=== PATIENT | male | born 1980 | race Caucasian/White ===

== ENCOUNTER 2019-12-24 11:51 | Inpatient (IN) | payer BC, OTHER ==
[~2019-12-24 11:51] MED LIST: Iopamidol-370 76% 500 ML 1 ML ONE
[2019-12-24] MEDS ORDERED: Lorazepam 2 MG/ML VIAL ONE ×2 (12:05→14:02)
[2019-12-24] MEDS ORDERED: Thiamine HCl 200 MG/2 ML VIAL SLOW IVP SCH (12:15)
[2019-12-24 12:32] LABS: #Lymphocytes 1.5 thou/uL (1.20-3.40); #Neutrophils 8.8 thou/uL (1.40-6.50); %Basophils 0.3 % (0.0-1.0); %Eosinophils 0.4 % (0.0-10.0); %Lymphocytes 13.1 % (21.0-51.0); %Monocytes 8.7 % (0.0-10.0); %Neutrophils 77.5 % (42.0-75.0); Hemoglobin 14.6 g/dL (14.0-18.0); Mean Corpuscular HGB CONC 32.9 g/dL (32.0-36.0); Mean Corpuscular Hemoglobin 32.9 pg (27.0-31.0); Mean Platelet Volume 8.5 fL (7.4-10.4); Platelet Count 200 thou/uL (130-400); RBC Distribution Width 12.7 % (11.5-14.5); Red Blood Cell (RBC) Count 4.45 mill/uL (4.70-6.10); White Blood Cell (WBC) Count 11.4 thou/uL (4.8-10.8)
[2019-12-24 12:47] LABS: ALT (SGPT) 49 U/L (8-55); AST (SGOT) 120 U/L (5-34); Albumin 4.2 g/dL (3.5-5.0); Alkaline Phosphatase 171 U/L (40-110); Anion Gap 28 mmol/L (10-20); BUN (Urea Nitrogen) 9 mg/dL (8.9-20.6); Bilirubin, Total 2.6 mg/dL (0.2-1.2); Calc. Creatinine Clearance 0 mL/min (70-130); Calcium 8.8 mg/dL (7.8-10.44); Carbon Dioxide 13 mmol/L (22-29); Chloride 95 mmol/L (98-107); Estimated GFR-MDRD Greater than 90; Globulin 3.7 g/dL (2.4-3.5); Glucose 118 mg/dL (70-105); Lipase 55 U/L (8-78); Potassium 3.7 mmol/L (3.5-5.1); Protein, Total 7.9 g/dL (6.0-8.3); Sodium 132 mmol/L (136-145)
--- NOTE | 2019-12-24 14:42 | CT ---
CT Abdomen Pelvis W Con History: Abdominal pain. Alcohol withdrawal Comparison: None. Findings: Lung bases are clear. No pericardial effusion. Severely heterogeneous appearance to the dima er with abnormal macro and micronodularity. Concern for intraparenchymal masses. Portal vein is patent. Moderate volume ascites. Congestive changes right lobe of the liver. Pancreas unremarkable. Spleen is only mildly enlarged. Mild portosystemic shunting with esophageal an d gastric varices. No evidence for bowel obstruction. Midthoracic spine compression deformities are incompletely evaluat ed although were seen on prior radiographs from 2015. Appendix is visualized and is normal. There is a 1.5 cm mass on the posterior cortex superior pole left kidney concerning for malignancy. S mall hypodensity in the posterior cortex interpolar left kidney measures fluid attenuation and 7 mm, likely a cyst. Nonobstructing 1 x 2 mm left superior renal calculus. Impression: 1. Hepatic cirrhosis with micro and macronodular appearance with multiple hypodense masses/nodular st eatosis. Liver protocol MRI recommended. 2. Splenomegaly with moderate portosystemic shunting and varices, sequelae of portal hypertension. 3. Moderate ascites. 4. Incompletely evaluated chronic midthoracic spine fractures. 5. Mass along the posterior cortex superior pole left kidney measuring 1.5 cm concerning for malignan cy. This can be evaluated on the liver protocol exam.
[2019-12-24] MEDS ORDERED: Cefepime 2 GM VIAL ONE (14:44)
[2019-12-24 14:48] LABS: Bacteria/HPF None Seen HPF (None Seen); Bilirubin 1+ (Negative); Blood, Urine 1+ (Negative); Clarity Clear (Clear); Glucose, Urine (Dipstick) Normal (Negative); Ketone, Urine Greater than 150 mg/dL (Negative); Leukocyte Negative Leu/uL (Negative); Mucous/LPF 1+ LPF (<2+); Nitrite Negative (Negative); Protein, Urine (Dipstick) 70 mg/dL (Neg-Trace); Specific Gravity, Urine 1.028 (1.002-1.036); Squamous Epithelial None Seen HPF (0-3); WBC/HPF 0-3 HPF (0-3)
[2019-12-24] MEDS ORDERED: Lidocaine 1% (PF) 30 ML VIAL ONE ×2 (14:59→15:33)
[2019-12-24 17:06] LABS: RBC Count-Automated (BF) 56 /cu.mm; WBC/Nucleated-Auto (BF) 548 uL
[2019-12-24 17:16] LABS: BF Color Yellow; Body Fluid Source Ascites Body Fluid; Clarity Hazy (Clear); Tube # EDTA
[2019-12-24 17:45] LABS: BF Segmented Neutrophils 9 %; Cell Count Non Hematic 42 %; Lymphocytes 49 %
--- NOTE | 2019-12-24 17:50 | HP ---
PRIMARY CARE PHYSICIAN: Mary Roman. CHIEF COMPLAINT: Nausea, vomiting, and confusion. HISTORY OF PRESENT ILLNESS: This is a 39-year-old white male with a history of alcoholism and fatty liver disease who presents to the emergency room with symptoms of nausea, vomiting, insomnia, extreme anxiety and panic attacks with concern for alcohol withdrawal. The patient was previously admitted to the hospital early this month for nausea and vomiting and possible Jeannie-Sam tear after stopping alcohol. He had stable hemoglobin, hematocrit, and not bleeding in the hospital and he was eventually discharged. He did have some Staph epi and some Micrococcus growing in his blood. He was supposed to get cultures [address] Howard to confirm that these were contaminants; however, he did not return to get that done. He was feeling fine at the time of discharge, but then 2 days later he started drinking about 2 pints of vodka a day. He stopped 2 days ago because he wanted to quit drinking so much alcohol. He and then about 6 hours later he started getting nausea and vomiting. He developed a lot of anxiety, trouble sleeping and had some panic attacks. Eventually, he presented to the emergency room. The patient also reports some small loose stools with flecks of black mixed with orange, yellow, and maybe little red over the last few days. He has not really been eating anything though, so he is not certain where they are coming from and the patient is adamant that he wants to stop drinking alcohol and is interested in doing rehab again. REVIEW OF SYSTEMS: CONSTITUTIONAL: No fevers. No chills. EYES: No double vision or blurred vision. EARS, NOSE, AND THROAT: No congestion or drainage from his nose. He has had some postnasal drip that has been bothersome since he got nauseated a couple of days ago. CARDIOVASCULAR: No chest pain. No palpitations or racing heart. PULMONARY: The patient does have intermittent cough from the postnasal drip, but no severe significant coughing. No shortness of breath or wheezing. GASTROINTESTINAL: See HPI. He has also had a little bit of right upper quadrant pain on and off recently. GENITOURINARY: No dysuria or hematuria. His urine has appeared somewhat dark. MUSCULOSKELETAL: The patient gets cramps in his calves and feet. Otherwise, no musculoskeletal pain or complaints. SKIN: No rashes or lesions currently, but he notices though he has had some blue spots on and off. NEUROLOGIC: No numbness, tingling, or focal weakness. No headaches. PSYCHIATRIC: The patient denies any hallucinations, auditory or visual. He had a little confusion on and off and he has had significant anxiety since stopping the alcohol. PAST MEDICAL HISTORY: 1. Chronic alcoholism. 2. Fatty liver disease. PAST SURGICAL HISTORY: 1. Cholecystectomy. 2. Back surgery. 3. Hernia repair. PAST PSYCHIATRIC HISTORY: Includes bipolar disorder, depression, and anxiety. SOCIAL HISTORY: The patient has been drinking 2 pints of vodka daily until he stopped 2 days ago. He has been to rehab 3 times. No illicit drug use. He currently smokes a half pack of cigarettes per day and wants to quit that as well. The patient is single and lives with his mother in [place]. He is a full code. Should he be incapacitated, his mother would be his medical decision maker. Her name is Angela Johnson. FAMILY HISTORY: Maternal grandfather with acute myocardial infarction in his 60s. No other family history. ALLERGIES: NO KNOWN DRUG ALLERGIES. CURRENT MEDICATIONS: 1. Seroquel 50 mg at bedtime. 2. Gabapentin 300 mg 4 times a day. PHYSICAL EXAMINATION: VITAL SIGNS: Initially blood pressure was 189/124 with a pulse of 137, respirations 26, temperature 99.0, O2 saturation 100% on room air. When the patient first arrived, he was given a total of 4 mg of Ativan IV with improvement in his agitation and shaking, and his blood pressure coming down to 135/92, pulse down to 110, and breathing calmed down some to about 22 or 23 on my exam per minute. GENERAL: This is a well-developed, well-nourished white male, who has some mild neuromuscular agitation, but looking comfortable in the bed, currently getting a paracentesis by the resident in the ER. HEENT: Pupils are equal, round, and reactive to light. Oropharynx is clear without lesions, erythema, or exudate. NECK: Supple. No lymphadenopathy. No thyroid nodules or enlargement. No JVD. HEART: Regular rate and rhythm. No murmurs, rubs, or gallops. LUNGS: Clear to auscultation bilaterally. No wheezes, crackles, or rhonchi. ABDOMEN: Soft, mildly distended, though less so than when he came in as they have taken off about a liter thus far. He has some mild tenderness to palpation diffusely. No specific areas of focal tenderness. No guarding, rebound, or masses palpable. He has normal bowel sounds. EXTREMITIES: No clubbing, cyanosis, or edema. SKIN: No rashes or other lesions. He does not have any jaundice appearance to his skin or icteric appearance to sclera. NEUROLOGIC: Strength, reflexes, and sensation are equal in all extremities. He has no facial droop. He has clear speech. He does have a mild intention tremor to his hands currently, much improved from what on admission per ER nurse's report. PSYCHIATRIC: Alert and oriented x3. Mildly anxious affect. LABORATORY DATA: CBC with a white blood cell count of 11,000, hemoglobin 14, hematocrit 44, platelet count 200. Complete metabolic panel is notable for a sodium of 132, chloride of 95, carbon dioxide of 13, anion gap of 28, glucose of 118, total bilirubin of 2.6, AST of 120, alkaline phosphatase of 171. The rest is normal. Lipase was negative at 55. Lactic acid was normal. Urinalysis with protein, greater than 150 ketones, 1+ blood, 1+ bilirubin, 7 to 10 red blood cells, no white blood cells, and no bacteria. IMAGING STUDIES: CT scan of the abdomen and pelvis is showing hepatic cirrhosis and macronodular appearance with multiple hypodense masses/nodular steatosis. Liver protocol MRI recommended. Also, splenomegaly with multiple portosystemic shunting and varices to call off portal hypertension, moderate ascites, incompletely evaluated chronic mid thoracic spine fractures, and a mass on the posterior cortex of the superior pole of the left kidney, measuring 1.5 cm concerning for malignancy. They recommended this be evaluated on the liver protocol exam as well. ASSESSMENT AND PLAN: 1. Acute alcohol withdrawal syndrome. The patient is markedly better after Ativan. He will probably continued to need more of this. We will start the patient on ASE protocol, but use Ativan due to his liver disease rather than Valium and we will monitor him closely in the MICU in case he starts to deteriorate again. 2. Cirrhotic liver disease, likely alcoholic and fatty liver in origin. The patient does not have any drop in his albumin. I will check PT/INR, but it appears his production capabilities are still intact as more the backup of pressure into his portal system is the main problem that is causing. 3. Chronic alcoholism. The patient is being encouraged in his desire to quit drinking. He probably would benefit from going to rehab if they can arrange that at discharge. 4. Ascites with mild leukocytosis and report of significant pain on initial presentation to the emergency room. The patient is currently getting paracentesis. We will check cultures on this, and we will also check a cell count and differential to rule out spontaneous bacterial peritonitis. Most likely, his symptoms are purely from his alcohol withdrawal and his persistent vomiting. I will consult Dr. Holguin for recommendations on working up his cirrhotic liver disease. He may eventually need some diuretics as well, although the patient says he has swollen up in the past and always got better when he stopped drinking and then limited his fluid intake. 5. Renal lesion. We will get an MRI to evaluate the liver and the renal mass to make sure it is not malignant. We will hold off on this until the patient is under better control from his alcohol withdrawals as he would have a hard time lying still for the MRI at this point. 6. Tobacco abuse. I recommended the patient quit smoking, though alcohol cessation is the obvious priority at this point. I would recommend that he follow up with the primary care physician. He does not currently have one. After his discharge, he can discuss with them what the best method for quitting smoking would be for him. 7. Gastrointestinal prophylaxis. We will put the patient on Protonix daily. 8. Deep venous thrombosis prophylaxis. Until we get coagulation profile, we will hold off on any sort of Lovenox, especially given his positive Hemoccult and we will just use sequential compression devices at this time. 9. Hemoccult positive with a history of mildly red stools. The patient has a history of apparent Jeannie-Sam tear. He may have done this again with his vomiting. No evidence for significant blood loss at this time. His hemoglobin and hematocrit are normal, and no evidence of active bleeding right now. We will monitor his hemoglobin and hematocrit, and see if Dr. Holguin has any recommendations. CODE STATUS: The patient is a full code. Should he be incapacitated, his mother would be his medical decision maker. Her name is Angela Johnson. Job ID: [id number]
[2019-12-24] MEDS ORDERED: Acetaminophen 650 MG Suppository PR PRN (17:51)
[2019-12-24] MEDS ORDERED: Acetaminophen 325 MG TAB PO PRN (17:51)
[2019-12-24] MEDS ORDERED: Ondansetron ODT 4 MG TAB PO PRN (17:51)
[2019-12-24] MEDS ORDERED: Lorazepam 2 MG/ML VIAL SLOW IVP PRN (17:51)
[2019-12-24] MEDS ORDERED: Senokot S 8.6-50 MG TAB PO PRN (17:51)
[2019-12-24] MEDS ORDERED: Ondansetron PF 4 MG/2 ML Vial IVP PRN (17:51)
[2019-12-24] MEDS ORDERED: Guaifenesin DM 100-10/5 ML UDCUP PO PRN (17:51)
[2019-12-24] MEDS ORDERED: Thiamine HCl 200 MG/2 ML VIAL IM SCH (18:00)
[2019-12-24 19:26] VITALS: BMI 24.3
[2019-12-24] MEDS: Lorazepam 2 MG/ML VIAL SLOW IVP PRN ×2 (19:33→23:17)
[2019-12-24] MEDS ORDERED: Multivitamins, Adult 10 ML, Folic Acid 1 MG, Thiamine HCl 100 MG in Dextrose 5 %-0.45 %... IV SCH (20:00)
[2019-12-24] MEDS: Multivitamins, Adult 10 ML, Folic Acid 1 MG, Thiamine HCl 100 MG in Dextrose 5 %-0.45 %... IV SCH (22:15)
[2019-12-24] MEDS: Pantoprazole 40 MG VIAL IVP SCH (22:16)
[2019-12-24] MEDS: Melatonin 3 MG TAB PO PRN (23:17)
[2019-12-24] MEDS: D5 0.9% NS w/ 20 mEq KCl 1,000 ML IV SCH (23:28)
[2019-12-25 03:26] LABS: INR-International Normal Ratio 1.2
[2019-12-25 03:42] LABS: Phosphorus 2.2 mg/dL (2.3-4.7)
[2019-12-25 03:44] LABS: Anion Gap 17 mmol/L (10-20); BUN (Urea Nitrogen) 7 mg/dL (8.9-20.6); Calc. Creatinine Clearance 143 mL/min (70-130); Carbon Dioxide 19 mmol/L (22-29); Chloride 100 mmol/L (98-107); Estimated GFR-MDRD Greater than 90; Glucose 94 mg/dL (70-105); Magnesium 1.9 mg/dL (1.6-2.6); Potassium 3.3 mmol/L (3.5-5.1); Sodium 133 mmol/L (136-145)
[2019-12-25 04:44] LABS: #Eosinphils 0.1 thou/uL (0.0-0.7); #Lymphocytes 1.2 thou/uL (1.20-3.40); #Monocytes 0.6 thou/uL (0.11-0.59); #Neutrophils 4.1 thou/uL (1.40-6.50); %Basophils 0.3 % (0.0-1.0); %Eosinophils 2.3 % (0.0-10.0); %Lymphocytes 19.1 % (21.0-51.0); %Monocytes 10.5 % (0.0-10.0); %Neutrophils 67.8 % (42.0-75.0); Hemoglobin 12.5 g/dL (14.0-18.0); Mean Corpuscular HGB CONC 34.2 g/dL (32.0-36.0); Mean Corpuscular Volume 99.5 fL (78.0-98.0); Mean Platelet Volume 8.9 fL (7.4-10.4); Platelet Count 119 thou/uL (130-400); RBC Distribution Width 12.6 % (11.5-14.5); Red Blood Cell (RBC) Count 3.68 mill/uL (4.70-6.10)
[2019-12-25 04:45] LABS: Platelet Morphology Comment Appears Decreased
[2019-12-25] MEDS: Lorazepam 2 MG/ML VIAL SLOW IVP PRN ×4 (05:22→20:14)
[2019-12-25] MEDS: Folic Acid 1 MG TAB PO SCH (09:22)
[2019-12-25] MEDS: Thiamine 100 MG TAB PO SCH (09:22)
[2019-12-25] MEDS: Magnesium Oxide 400 MG TAB PO SCH (09:22)
[2019-12-25] MEDS: Multivitamin W/ Minerals 1 TAB PO SCH (09:22)
[2019-12-25] MEDS: Pantoprazole 40 MG VIAL IVP SCH ×2 (09:30→20:16)
[2019-12-25] MEDS ORDERED: Potassium Chloride 20 MEQ TAB PO SCH (09:45)
--- NOTE | 2019-12-25 09:45 | PDOC.HOSPP ---
- Subjective Encounter Date: 12/25/19 Encounter Time: 11:40 Subjective: Patient feeling a bit better. Was shaky and nauseated this morning but treated with IV meds and minimal shakiness, no nausea right now. Not able to eat much yet but hasn't eaten in quite awhile. - Objective Vital Signs & Weight: Vital Signs (12 hours) Temp 12/25/19 07:33 99.8 F H 12/25/19 03:30 98.4 F 12/24/19 23:47 99.2 F Weight Weight 174 lb 14.4 oz Most Recent Monitor Data Heart Rate from ECG 84 NIBP 121/84 NIBP BP-Mean 96 Respiration from ECG 22 SpO2 97 I&O: 12/24/19 12/25/19 12/26/19 06:59 06:59 06:59 Intake Total 896 Output Total 425 Balance 471 Result Diagrams: 12/25/19 03:00 12/25/19 03:00 Hospitalist ROS - Review of Systems Constitutional: denies: fever, chills Respiratory: denies: cough, shortness of breath Cardiovascular: denies: chest pain, palpitations Gastrointestinal: denies: nausea, vomiting, abdominal pain Neurological: denies: confusion - Medication Medications: Active Medications Generic Name Dose Route Start Last Admin Trade Name Freq PRN Reason Stop Dose Admin Folic Acid 1 mg 12/25/19 09:00 12/25/19 09:22 Folvite PO 1 mg DAILY [facility] Administration Multivitamins 10 ml/ Folic 1,011.2 mls @ 100 mls/hr 12/24/19 21:00 12/24/19 22:15 Acid 1 mg/ Thiamine HCl 100 mg IV 1,011.2 mls / Dextrose/Sodium Chloride Q24HR DARRION Administration Potassium Chloride/Dextrose/Sod Cl 1,000 mls @ 100 mls/hr 12/24/19 20:00 23:28 D5 0.9% Ns W/ 20 Meq Kcl IV Not Given .Q10H D[facility]ION Iron/Minerals/Multivitamins 1 tab 12/25/19 09:00 12/25/19 09:22 Theragran M PO 1 tab DAILY [facility] Administration Lorazepam 1 mg 12/24/19 17:51 12/25/19 09:21 Ativan SLOW IVP 1 mg Q4H PRN Administration Anxiety/Agitation Magnesium Oxide 400 mg 08/26/20 09:00 12/25/19 09:22 Magnesium Oxide PO 400 mg DAILY [facility] Administration Melatonin 3 mg 12/24/19 22:05 12/24/19 23:17 Melatonin PO 3 mg HS PRN Administration Insomnia Pantoprazole Sodium 40 mg 12/24/19 21:00 12/25/19 09:30 Protonix IVP 40 mg Q12HR D[facility]ION Administration Sodium Chloride 10 ml 12/24/19 21:00 12/25/19 09:22 Flush - Normal Saline IVF 10 ml Q12HR D[facility]ION Administration Thiamine HCl 100 mg 12/25/19 09:00 12/25/19 09:22 Thiamine PO 100 mg DAILY D[facility]ION Administration - Exam General Appearance: NAD, awake alert ENT: moist mucosa Heart: RRR, no murmur, no gallops, no rubs Respiratory: CTAB, no wheezes, no rales, no ronchi Gastrointestinal: soft, non-tender, non-distended, normal bowel sounds Neurological - other findings: mild intention tremor of hands Psychiatric: normal affect, normal behavior, A&O x 3 Hosp A/P (1) Alcohol withdrawal delirium, acute, hyperactive Code(s): F10.231 - ALCOHOL DEPENDENCE WITH WITHDRAWAL DELIRIUM Status: Acute (2) Alcoholic cirrhosis of liver with ascites Code(s): K70.31 - ALCOHOLIC CIRRHOSIS OF LIVER WITH ASCITES Status: Acute (3) Alcohol abuse Code(s): F10.10 - ALCOHOL ABUSE, UNCOMPLICATED Status: Chronic (4) Renal mass Code(s): N28.89 - OTHER SPECIFIED DISORDERS OF KIDNEY AND URETER Status: Acute (5) GI bleed Code(s): K92.2 - GASTROINTESTINAL HEMORRHAGE, UNSPECIFIED Status: Acute (6) Tobacco abuse Code(s): Z72.0 - TOBACCO USE Status: Chronic - Plan Tachycardia and hypertension resolved, on ativan for ASE protocol. H/H dropped with self report of some reddish stools. Will monitor closely for any evidence of active bleeding. GI consulted. Radiology recommending MRI liver protocol for both nodular liver workup as well as workup of 1.5cm renal mass, will schedule or tomorrow AM now that he is improving and pretreat with Ativan prior. DVT proph: SCDs GI proph: Protonix IV
[2019-12-25] MEDS: D5 0.9% NS w/ 20 mEq KCl 1,000 ML IV SCH ×2 (10:42→16:48)
[2019-12-25 12:30] LABS: SARS-CoV-2 MS2 Positive; SARS-CoV-2 N Gene Negative; SARS-CoV-2 S Gene Negative; SARS-CoV-2 by NAA Not Detected (NotDetected); SARS-CoV-2 orf1ab Negative
--- NOTE | 2019-12-25 16:36 | CON ---
DATE OF CONSULTATION: 12/25/2019 REASON FOR CONSULTATION: Cirrhosis, possible GI bleed. HISTORY OF PRESENT ILLNESS: Mr. Johnson is a 39-year-old man who has a long history of alcoholic liver disease and longstanding alcoholic hepatitis. He presented to the emergency room with alcohol withdrawal. He was last admitted 2 weeks ago for similar presentation. At that time, he did have limited evidence of upper GI bleed, characterized as coffee-ground and limited hematemesis. He did not have any significant drop in blood count and the patient was treated conservatively and monitored by Dr. Holguin. He was subsequently discharged, but then resumed alcohol consumption up to 2 pints of vodka a day. Currently, the patient is mildly tremulous, but alert and lucid. He reports having some nausea, but without any actual vomiting. He is tolerating a regular diet. There is no localizing pain or discomfort. Prior to admission, he reports possibly having some episode of coffee-ground emesis. He also has noted his stool has been dark. Since his admission, he has had no further evidence of GI bleeding. CT of the abdomen obtained yesterday showed evidence of cirrhotic liver with moderate volume ascites. He underwent paracentesis. Fluid show predominantly white blood cells. Culture still pending. Currently, he does not report any active GI symptoms. PAST MEDICAL HISTORY: 1. Chronic alcoholic liver disease. 2. Status post cholecystectomy. 3. Hernia repair. 4. Status post back surgery. 5. Bipolar disorder. ALLERGIES: NONE. MEDICATIONS: At home, include: 1. Gabapentin. 2. Thiamine. 3. Seroquel. 4. Protonix. 5. Folic acid. SOCIAL HISTORY: The patient consumes mostly vodka. He does smoke half a pack to a pack a day of cigarettes. FAMILY HISTORY: Negative for any known GI problem, liver disease, or GI malignancy. REVIEW OF SYSTEMS: Ten-point review of systems did not show any other pertinent symptoms other than listed above. No other pertinent positives or negatives. PHYSICAL EXAMINATION: VITAL SIGNS: Temperature is 99.6, blood pressure 129/83, pulse of 89. GENERAL: He is alert, mildly tremulous, but lucid and oriented. HEENT: Anicteric sclerae. Oropharynx is moist. CV: Normal S1 and S2. Regular rate and rhythm. CHEST: Breath sounds. ABDOMEN: Soft, mildly protuberant, mildly tender in the left middle quadrant. No palpable mass or organomegaly. EXTREMITIES: No edema. LABORATORY DATA: WBCs 6.0, hemoglobin 12.5, and platelet count of 119. Electrolytes within normal range. Creatinine 0.77. Bilirubin 2.6, AST of 120, ALT of 49, alkaline phosphatase 171, and lipase of 55. Hepatitis screen earlier this year was negative for chronic hepatitis B and hepatitis C. Ascitic fluid yesterday showed wbc 548, rbc 56, total protein 3.5, albumin not performed. CT, cirrhotic morphology of the liver. Moderate volume ascites. Splenomegaly. Possible left kidney mass. ASSESSMENT: 1. Chronic alcoholic liver disease with longstanding alcoholic hepatitis, now with CT evidence of cirrhosis along with ascites. 2. Reported history of coffee-ground emesis prior to admission, none since admission. The patient likely had limited bleeding, likely from now mucosal tear from the recurrent nausea vomiting. No signs of ongoing bleeding at the present time. Blood count remained stable. 3. Ascites, fluid show predominantly wbc, culture pending. 4. Alcohol withdrawal, better. 5. Chronic alcoholism. RECOMMENDATIONS: 1. We will check alpha-fetoprotein. I suspect changes on CT represent regenerative nodule rather than any hepatic masses. 2. We will await ascitic fluid culture. Recommend holding off antibiotics at the present time. 3. We will start on low-dose diuretics, furosemide 20 mg daily and spironolactone 50 mg daily, along with salt restriction. 4. Upper endoscopy for esophageal variceal screening. 5. We will send off ascitic fluid albumin level, sample still present. 6. We discussed with the patient about the necessity of complete alcohol abstinence. 7. We will follow. Job ID: [id number]
[2019-12-25] MEDS: Nicotine 14 MG PATCH TOP SCH (20:17)
[2019-12-25] MEDS: traMADol HCl 50 MG TAB PO PRN (21:02)
[2019-12-25] MEDS: Multivitamins, Adult 10 ML, Folic Acid 1 MG, Thiamine HCl 100 MG in Dextrose 5 %-0.45 %... IV SCH (21:03)
[2019-12-26] MEDS: Lorazepam 2 MG/ML VIAL SLOW IVP PRN ×5 (01:02→22:46)
[2019-12-26] MEDS: D5 0.9% NS w/ 20 mEq KCl 1,000 ML IV SCH ×3 (02:15→22:55)
[2019-12-26 04:27] LABS: #Basophils 0.1 thou/uL (0.0-0.2); #Eosinphils 0.2 thou/uL (0.0-0.7); #Lymphocytes 1.2 thou/uL (1.20-3.40); #Monocytes 0.5 thou/uL (0.11-0.59); #Neutrophils 3.4 thou/uL (1.40-6.50); %Eosinophils 3.8 % (0.0-10.0); %Lymphocytes 22.3 % (21.0-51.0); %Monocytes 10.1 % (0.0-10.0); %Neutrophils 62.8 % (42.0-75.0); Hemoglobin 12.8 g/dL (14.0-18.0); Mean Corpuscular HGB CONC 33.6 g/dL (32.0-36.0); Mean Corpuscular Hemoglobin 33.6 pg (27.0-31.0); Platelet Count 117 thou/uL (130-400); RBC Distribution Width 12.5 % (11.5-14.5); White Blood Cell (WBC) Count 5.4 thou/uL (4.8-10.8)
[2019-12-26 04:32] LABS: Anion Gap 10 mmol/L (10-20); BUN (Urea Nitrogen) 5 mg/dL (8.9-20.6); Calc. Creatinine Clearance 167 mL/min (70-130); Carbon Dioxide 24 mmol/L (22-29); Chloride 102 mmol/L (98-107); Estimated GFR-MDRD Greater than 90; Glucose 102 mg/dL (70-105); Potassium 3.3 mmol/L (3.5-5.1); Sodium 133 mmol/L (136-145)
[2019-12-26 04:39] LABS: ALT (SGPT) 47 U/L (8-55); AST (SGOT) 106 U/L (5-34); Albumin 3.2 g/dL (3.5-5.0); Alkaline Phosphatase 113 U/L (40-110); Bilirubin, Direct 0.7 mg/dL (0.1-0.3); Bilirubin, Total 1.2 mg/dL (0.2-1.2); Protein, Total 5.9 g/dL (6.0-8.3)
[2019-12-26] MEDS: Spironolactone 25 MG TAB PO SCH (08:39)
[2019-12-26] MEDS: Furosemide 20 MG TAB PO SCH (08:40)
[2019-12-26] MEDS: Folic Acid 1 MG TAB PO SCH (08:40)
[2019-12-26] MEDS ORDERED: Fentanyl 100 MCG/2 ML VIAL ONE (08:40)
[2019-12-26] MEDS: Pantoprazole 40 MG VIAL IVP SCH (08:40)
[2019-12-26] MEDS: Thiamine 100 MG TAB PO SCH (08:40)
[2019-12-26] MEDS: Multivitamin W/ Minerals 1 TAB PO SCH (08:40)
[2019-12-26] MEDS: Magnesium Oxide 400 MG TAB PO SCH (08:40)
--- NOTE | 2019-12-26 10:33 | PDOC.HOSPP ---
- Subjective Encounter Date: 12/26/19 Encounter Time: 12:10 Subjective: Patient back from EGD, told no varices or bleeding afterward. Feeling a bit nauseated this AM, thinks it is from anxiety. No other complaints. - Objective Vital Signs & Weight: Vital Signs (12 hours) Temp 12/26/19 07:56 97.8 F 12/26/19 03:29 97.6 F 12/25/19 23:45 98.8 F Weight Admit Weight 174 lb 14.4 oz Weight 174 lb 14.4 oz Most Recent Monitor Data Heart Rate from ECG 92 NIBP 124/89 NIBP BP-Mean 100 Respiration from ECG 19 SpO2 98 I&O: 12/25/19 12/26/19 12/27/19 06:59 06:59 06:59 Intake Total 896 2260 Output Total 425 1300 Balance 471 960 Result Diagrams: 12/26/19 03:25 12/26/19 03:25 Hospitalist ROS - Review of Systems Constitutional: denies: fever, chills Respiratory: denies: cough, shortness of breath Cardiovascular: denies: chest pain, palpitations Gastrointestinal: reports: nausea, abdominal pain. denies: vomiting, diarrhea, constipation - Medication Medications: Active Medications Generic Name Dose Route Start Last Admin Trade Name Freq PRN Reason Stop Dose Admin Folic Acid 1 mg 12/25/19 09:00 12/26/19 08:40 Folvite PO Not Given DAILY [facility] Furosemide 20 mg 12/26/19 09:00 12/26/19 08:40 Lasix PO Not Given DAILY [facility] Multivitamins 10 ml/ Folic 1,011.2 mls @ 100 mls/hr 12/24/19 21:00 12/25/19 21:03 Acid 1 mg/ Thiamine HCl 100 mg IV 1,011.2 mls / Dextrose/Sodium Chloride Q24HR DARRION Administration Potassium Chloride/Dextrose/Sod Cl 1,000 mls @ 100 mls/hr 12/24/19 20:00 02:15 D5 0.9% Ns W/ 20 Meq Kcl IV Not Given .Q10H DARRION Iron/Minerals/Multivitamins 1 tab 12/25/19 09:00 12/26/19 08:40 Theragran M PO Not Given DAILY [facility] Lorazepam 1 mg 12/24/19 17:51 12/26/19 05:55 Ativan SLOW IVP 1 mg Q4H PRN Administration Anxiety/Agitation Magnesium Oxide 400 mg 12/25/19 09:00 12/26/19 08:40 Magnesium Oxide PO Not Given DAILY [facility] Melatonin 3 mg 12/24/19 22:05 12/24/19 23:17 Melatonin PO 3 mg HS PRN Administration Insomnia Nicotine 14 mg 12/25/19 21:00 12/25/19 20:17 Nicoderm Patch TOP 14 mg Q24HR DARRION Administration Pantoprazole Sodium 40 mg 12/24/19 21:00 12/26/19 08:40 Protonix IVP Not Given Q12HR [facility] Sodium Chloride 10 ml 12/24/19 21:00 12/26/19 08:40 Flush - Normal Saline IVF Not Given Q12HR [facility] Spironolactone 50 mg 12/26/19 08:00 12/26/19 08:39 Aldactone PO Not Given QAM-WM [facility] Thiamine HCl 100 mg 12/25/19 09:00 12/26/19 08:40 Thiamine PO Not Given DAILY [facility] Tramadol HCl 50 mg 12/25/19 20:29 12/25/19 21:02 Ultram PO 50 mg Q4H PRN Administration Moderate Pain (4-6) - Exam General Appearance: NAD, awake alert ENT: moist mucosa Heart: RRR, no murmur, no gallops, no rubs Respiratory: CTAB, no wheezes, no rales, no ronchi Gastrointestinal: soft, non-distended, normal bowel sounds Gastrointestinal - other findings: mild TTP, worst in EVELYN and RUQ region Neurological - other findings: mild intention tremor of bilateral hands Psychiatric: normal affect, normal behavior, A&O x 3 Hosp A/P (1) Alcohol withdrawal delirium, acute, hyperactive Code(s): F10.231 - ALCOHOL DEPENDENCE WITH WITHDRAWAL DELIRIUM Status: Acute (2) Alcoholic cirrhosis of liver with ascites Code(s): K70.31 - ALCOHOLIC CIRRHOSIS OF LIVER WITH ASCITES Status: Acute (3) Alcohol abuse Code(s): F10.10 - ALCOHOL ABUSE, UNCOMPLICATED Status: Chronic (4) Renal mass Code(s): N28.89 - OTHER SPECIFIED DISORDERS OF KIDNEY AND URETER Status: Acute (5) GI bleed Code(s): K92.2 - GASTROINTESTINAL HEMORRHAGE, UNSPECIFIED Status: Acute (6) Tobacco abuse Code(s): Z72.0 - TOBACCO USE Status: Chronic - Plan Tachycardia and hypertension resolved, on ativan for ASE protocol. H/H dropped with self report of some reddish stools. Will monitor closely for any evidence of active bleeding. GI did EGD this AM reportedly without abnormality. Radiology recommending MRI liver protocol for both nodular liver workup as well as workup of 1.5cm renal mass, MRI today or tomorrow and pretreat with Ativan prior. Safe to transfer to medical. DVT proph: SCDs GI proph: Protonix IV
--- NOTE | 2019-12-26 10:34 | OP ---
DATE OF PROCEDURE: 12/26/2019 PROCEDURE PERFORMED: Esophagogastroduodenoscopy. PREOPERATIVE DIAGNOSES: Coffee-ground emesis/hematemesis and cirrhosis with portal hypertension. Evaluate for varices. DESCRIPTION OF PROCEDURE: Informed consent was obtained from the patient. He was sedated with total intravenous anesthesia. The bite block was placed and the endoscope was advanced easily to the second portion of the duodenum and retroflexion was performed in the stomach. The esophagus was normal. The GE junction was normal. There was mild portal hypertensive gastropathy in the fundus and proximal body. The remainder of the gastric mucosa was normal including retroflexed views. The pylorus and first and second portions of the duodenum were normal. IMPRESSION: 1. Mild portal hypertensive gastropathy. 2. Otherwise normal EGD. No varices. RECOMMENDATIONS: 1. Alcohol cessation. 2. Repeat EGD in 1 year for varices screening. 3. MRI with liver mass protocol to evaluate liver nodules and the left renal mass. Job ID: [id number]
[2019-12-26] MEDS ORDERED: Potassium Chloride 20 MEQ TAB PO SCH (10:45)
[2019-12-26] MEDS ORDERED: PROPOFOL 200 MG/20 ML VIAL ONE (11:40)
[2019-12-26] MEDS: traMADol HCl 50 MG TAB PO PRN ×2 (12:39→18:27)
[2019-12-26] MEDS: Multivitamins, Adult 10 ML, Folic Acid 1 MG, Thiamine HCl 100 MG in Dextrose 5 %-0.45 %... IV SCH (21:12)
[2019-12-26] MEDS: Ketorolac Tromethamine 10 MG TAB PO SCH (21:14)
[2019-12-26] MEDS: Melatonin 3 MG TAB PO PRN (21:16)
[2019-12-26] MEDS: Nicotine 14 MG PATCH TOP SCH (21:16)
[2019-12-27] MEDS: Lorazepam 2 MG/ML VIAL SLOW IVP PRN ×4 (04:11→20:34)
[2019-12-27 05:55] LABS: #Eosinphils 0.2 thou/uL (0.0-0.7); #Monocytes 0.6 thou/uL (0.11-0.59); #Neutrophils 3.2 thou/uL (1.40-6.50); %Basophils 0.4 % (0.0-1.0); %Eosinophils 4.4 % (0.0-10.0); %Lymphocytes 19.9 % (21.0-51.0); %Monocytes 10.8 % (0.0-10.0); %Neutrophils 64.5 % (42.0-75.0); Hemoglobin 12.8 g/dL (14.0-18.0); Mean Corpuscular Hemoglobin 33.4 pg (27.0-31.0); Mean Platelet Volume 8.9 fL (7.4-10.4); Platelet Count 117 thou/uL (130-400); RBC Distribution Width 12.6 % (11.5-14.5); Red Blood Cell (RBC) Count 3.84 mill/uL (4.70-6.10)
[2019-12-27 06:01] LABS: Anion Gap 11 mmol/L (10-20); BUN (Urea Nitrogen) 5 mg/dL (8.9-20.6); Calc. Creatinine Clearance 200 mL/min (70-130); Calcium 8.1 mg/dL (7.8-10.44); Carbon Dioxide 22 mmol/L (22-29); Chloride 105 mmol/L (98-107); Estimated GFR-MDRD Greater than 90; Glucose 117 mg/dL (70-105); Potassium 3.7 mmol/L (3.5-5.1); Sodium 134 mmol/L (136-145)
[2019-12-27] MEDS: Ketorolac Tromethamine 10 MG TAB PO SCH ×4 (06:27→20:32)
--- NOTE | 2019-12-27 08:44 | PDOC.HOSPP ---
- Subjective Encounter Date: 12/27/19 Encounter Time: 11:00 Subjective: Patient continuing to improve. Shakiness better, still getting Ativan about 4x per day. MRI just finished. - Objective Vital Signs & Weight: Vital Signs (12 hours) Temp Pulse Resp BP BP Pulse Ox 12/27/19 07:38 98.2 F 89 18 126/88 97 12/27/19 04:00 98 F 84 18 118/81 118/81 97 12/27/19 00:00 97.8 F 87 18 110/70 110/70 96 Weight Admit Weight 174 lb 14.4 oz Weight 174 lb 14.4 oz Most Recent Monitor Data Heart Rate from ECG 83 NIBP 119/78 NIBP BP-Mean 91 Respiration from ECG 23 SpO2 96 I&O: 12/26/19 12/27/19 12/28/19 06:59 06:59 06:59 Intake Total 2260 Output Total 1300 Balance 960 Result Diagrams: 12/27/19 05:27 12/27/19 05:27 Hospitalist ROS - Review of Systems Constitutional: denies: fever, chills Respiratory: denies: cough, shortness of breath Cardiovascular: denies: chest pain, palpitations Gastrointestinal: denies: nausea, vomiting, abdominal pain - Medication Medications: Active Medications Generic Name Dose Route Start Last Admin Trade Name Adi PRN Reason Stop Dose Admin Folic Acid 1 mg 12/25/19 09:00 12/26/19 08:40 Folvite PO Not Given DAILY [facility] Furosemide 20 mg 12/26/19 09:00 12/26/19 08:40 Lasix PO Not Given DAILY [facility] Multivitamins 10 ml/ Folic 1,011.2 mls @ 100 mls/hr 12/24/19 21:00 12/26/19 21:12 Acid 1 mg/ Thiamine HCl 100 mg IV 1,011.2 mls / Dextrose/Sodium Chloride Q24HR DARRION Administration Potassium Chloride/Dextrose/Sod Cl 1,000 mls @ 100 mls/hr 12/24/19 20:00 22:55 D5 0.9% Ns W/ 20 Meq Kcl IV Not Given .Q10H [facility] Iron/Minerals/Multivitamins 1 tab 12/25/19 09:00 12/26/19 08:40 Theragran M PO Not Given DAILY [facility] Ketorolac Tromethamine 10 mg 12/26/19 23:59 12/27/19 06:27 Toradol PO 12/31/19 23:59 10 mg Q6HR DARRION Administration Lorazepam 1 mg 12/24/19 17:51 12/27/19 04:11 Ativan SLOW IVP 1 mg Q4H PRN Administration Anxiety/Agitation Magnesium Oxide 400 mg 12/25/19 09:00 12/26/19 08:40 Magnesium Oxide PO Not Given DAILY [facility] Melatonin 3 mg 12/24/19 22:05 12/26/19 21:16 Melatonin PO 3 mg HS PRN Administration Insomnia Nicotine 14 mg 12/25/19 21:00 12/26/19 21:16 Nicoderm Patch TOP 14 mg Q24HR DARRION Administration Sodium Chloride 10 ml 12/24/19 21:00 12/26/19 21:16 Flush - Normal Saline IVF 10 ml Q12HR DARRION Administration Spironolactone 50 mg 12/26/19 08:00 12/26/19 08:39 Aldactone PO Not Given QAM-WM DARRION Thiamine HCl 100 mg 12/25/19 09:00 12/26/19 08:40 Thiamine PO Not Given DAILY DARRION - Exam General Appearance: NAD, awake alert ENT: moist mucosa Heart: RRR, no murmur, no gallops, no rubs Respiratory: CTAB, no wheezes, no rales, no ronchi Gastrointestinal: soft, non-distended, normal bowel sounds Gastrointestinal - other findings: mild TTP RUQ Neurological: cranial nerve grossly intact, no focal deficits Neurological - other findings: mild hand tremor (Just medicated) Psychiatric: normal affect, normal behavior, A&O x 3 Hosp A/P (1) Alcohol withdrawal delirium, acute, hyperactive Code(s): F10.231 - ALCOHOL DEPENDENCE WITH WITHDRAWAL DELIRIUM Status: Acute (2) Alcoholic cirrhosis of liver with ascites Code(s): K70.31 - ALCOHOLIC CIRRHOSIS OF LIVER WITH ASCITES Status: Acute (3) Alcohol abuse Code(s): F10.10 - ALCOHOL ABUSE, UNCOMPLICATED Status: Chronic (4) Renal mass Code(s): N28.89 - OTHER SPECIFIED DISORDERS OF KIDNEY AND URETER Status: Acute (5) GI bleed Code(s): K92.2 - GASTROINTESTINAL HEMORRHAGE, UNSPECIFIED Status: Acute (6) Tobacco abuse Code(s): Z72.0 - TOBACCO USE Status: Chronic - Plan Tachycardia and hypertension resolved, on ativan for ASE protocol. H/H dropped with self report of some reddish stools. Will monitor closely for any evidence of active bleeding. GI did EGD this AM reportedly without abnormality besides some gastric varices without bleeding. H/H stable. MRI with fatty infiltration of the liver, clot in the right hepatic vein, and 1.2cm solid mass tumor to the left kidney. Will discuss findings with Dr. Angeles and with Urology Dr. Rodriges for the renal mass DVT proph: SCDs GI proph: Protonix IV
[2019-12-27] MEDS: Magnesium Oxide 400 MG TAB PO SCH ×2 (10:33→10:35)
[2019-12-27] MEDS: Folic Acid 1 MG TAB PO SCH (10:33)
[2019-12-27] MEDS: Thiamine 100 MG TAB PO SCH (10:33)
[2019-12-27] MEDS: Furosemide 20 MG TAB PO SCH (10:34)
[2019-12-27] MEDS: Multivitamin W/ Minerals 1 TAB PO SCH (10:34)
[2019-12-27] MEDS: D5 0.9% NS w/ 20 mEq KCl 1,000 ML IV SCH ×2 (10:34→19:58)
[2019-12-27] MEDS: Spironolactone 25 MG TAB PO SCH (10:35)
--- NOTE | 2019-12-27 10:42 | MRI ---
EXAM: MRI of the abdomen without and with contrast COMPARISON: CT abdomen/pelvis 12/24/2019 HISTORY: Nodular liver and renal mass TECHNIQUE: Multiplanar multi sequence MR images were taken of the abdomen without and with IV contras t. FINDINGS: Liver: The edge of the liver has a smooth contour. Diffuse loss of signal in the liver is consistent with fatty infiltration. This is more prominent in the right hepatic lobe. There is high T1 signal and low T2 signal in the right hepatic vein consistent with thrombus in this vessel. There is a sligh tly nodular appearance of the liver which may be a nutmeg appearance. No abnormal focal enhancement. There is a small amount of ascites. Gallbladder: No filling defects or gallbladder wall thickening. Common bile duct: Normal caliber without filling defects Adrenal glands: Unremarkable. Kidneys: There is a 1.2 cm lesion in the medial aspect of the left kidney. This is isointense to the background renal parenchyma and appears to demonstrate enhancement on the postcontrast images concerning for a solid renal mass. No right renal abnormality. Spleen: Enlarged measuring 16.5 cm. Pancreas: Unremarkable. No abnormal enhancement. Retroperitoneum: No enlarged lymph nodes Bones: No marrow signal abnormality. IMPRESSION: 1. Fatty liver with worsening of fatty infiltration in the right lobe. 2. 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 (F ocal Budd-Chiari syndrome) No obvious infiltrative mass is seen at this time but a follow-up MRI is recommended to exclude an underlying infiltrative mass. 3. Concerning left renal mass may represent a renal cell cancer. 4. Ascites and splenomegaly This exam was reviewed with Dr. Becerra and Dr. Harvey who agree with the findings and recommendation s.
[2019-12-27] MEDS ORDERED: Magnevist 469MG/ML 20 ML VIAL ONE (11:02)
[2019-12-27] MEDS ORDERED: Enoxaparin Sodium 40 MG/0.4 ML SYRINGE SC SCH (13:15)
[2019-12-27 15:32] LABS: INR-International Normal Ratio 1.1; PTT 23.4 sec (22.9-36.1); Prothrombin Time 14.2 sec (12.0-14.7)
[2019-12-27 15:34] LABS: D-Dimer Test 2.75 *mcg/mL (0.27-0.43)
[2019-12-27] MEDS: Melatonin 3 MG TAB PO PRN (20:34)
[2019-12-27] MEDS: Nicotine 14 MG PATCH TOP SCH (20:34)
[2019-12-27] MEDS: Multivitamins, Adult 10 ML, Folic Acid 1 MG, Thiamine HCl 100 MG in Dextrose 5 %-0.45 %... IV SCH (20:43)
[2019-12-27] MEDS: Enoxaparin Sodium 80 MG/0.8 ML SYRINGE SC SCH (20:50)
--- NOTE | 2019-12-27 21:23 | PRG ---
DATE OF SERVICE: 12/27/2019 SUBJECTIVE: Mr. Johnson states that he feels better today. No abdominal pain or nausea or vomiting. OBJECTIVE: VITAL SIGNS: Temperature 98.2, pulse 89, blood pressure 126/88. GENERAL: He is in no acute distress. Alert and oriented x3. LUNGS: Clear to auscultation bilaterally. HEART: Regular rate and rhythm without murmur. ABDOMEN: Soft, nontender, and nondistended. Bowel sounds are present. EXTREMITIES: No lower extremity edema. LABORATORY DATA: White blood cell count 5.0, hemoglobin 12.8, platelets 117. INR 1.1. Creatinine 0.55, bilirubin 1.2, AST 106, ALT 47, and alkaline phosphatase 113. AFP 5.9. IMPRESSION: 1. Alcoholic cirrhosis and portal hypertension. 2. MRI done today shows thrombosis of the right hepatic vein causing outflow obstruction in the right lobe of the liver. 3. Renal mass was concerning for renal cell cancer. 4. Esophagogastroduodenoscopy yesterday was negative for varices. RECOMMENDATIONS: 1. Start therapeutic Lovenox for hepatic vein thrombosis. 2. Hypercoagulability workup. 3. Consider urology evaluation while he is here for the renal mass. 4. Complete alcohol cessation. Job ID: [id number]
[2019-12-28] MEDS: Ketorolac Tromethamine 10 MG TAB PO SCH ×5 (01:30→23:29)
[2019-12-28] MEDS: D5 0.9% NS w/ 20 mEq KCl 1,000 ML IV SCH ×3 (04:07→18:25)
[2019-12-28 05:45] LABS: #Eosinphils 0.2 thou/uL (0.0-0.7); #Lymphocytes 1.2 thou/uL (1.20-3.40); #Monocytes 0.8 thou/uL (0.11-0.59); #Neutrophils 3.3 thou/uL (1.40-6.50); %Basophils 0.9 % (0.0-1.0); %Eosinophils 2.8 % (0.0-10.0); %Lymphocytes 21.7 % (21.0-51.0); %Monocytes 14.7 % (0.0-10.0); Hemoglobin 12.7 g/dL (14.0-18.0); Mean Corpuscular HGB CONC 32.6 g/dL (32.0-36.0); Mean Platelet Volume 9.1 fL (7.4-10.4); Platelet Count 138 thou/uL (130-400); RBC Distribution Width 12.8 % (11.5-14.5); Red Blood Cell (RBC) Count 3.85 mill/uL (4.70-6.10); White Blood Cell (WBC) Count 5.5 thou/uL (4.8-10.8)
[2019-12-28 06:22] LABS: Anion Gap 13 mmol/L (10-20); BUN (Urea Nitrogen) 5 mg/dL (8.9-20.6); Calc. Creatinine Clearance 193 mL/min (70-130); Calcium 8.1 mg/dL (7.8-10.44); Carbon Dioxide 21 mmol/L (22-29); Chloride 103 mmol/L (98-107); Estimated GFR-MDRD Greater than 90; Glucose 107 mg/dL (70-105); Potassium 3.7 mmol/L (3.5-5.1); Sodium 133 mmol/L (136-145)
[2019-12-28] MEDS: Folic Acid 1 MG TAB PO SCH (08:35)
[2019-12-28] MEDS: Spironolactone 25 MG TAB PO SCH (08:35)
[2019-12-28] MEDS: Thiamine 100 MG TAB PO SCH (08:35)
[2019-12-28] MEDS: Furosemide 20 MG TAB PO SCH (08:36)
[2019-12-28] MEDS: Multivitamin W/ Minerals 1 TAB PO SCH (08:37)
[2019-12-28] MEDS: Magnesium Oxide 400 MG TAB PO SCH (08:37)
[2019-12-28] MEDS: Enoxaparin Sodium 80 MG/0.8 ML SYRINGE SC SCH ×2 (08:50→20:35)
--- NOTE | 2019-12-28 10:36 | PDOC.HOSPP ---
- Subjective Encounter Date: 12/28/19 Encounter Time: 13:00 Subjective: Patient without complaints today. Patient eager to go home. - Objective Vital Signs & Weight: Vital Signs (12 hours) Temp Pulse Resp BP BP Pulse Ox 12/28/19 07:18 97.8 F 74 18 114/76 97 12/28/19 04:47 97.8 F 87 18 117/84 95 12/28/19 04:00 117/84 12/28/19 00:00 119/80 12/27/19 23:39 97.7 F 94 18 119/80 98 Weight Admit Weight 174 lb 14.4 oz Weight 174 lb 14.4 oz Most Recent Monitor Data Heart Rate from ECG 83 NIBP 119/78 NIBP BP-Mean 91 Respiration from ECG 23 SpO2 96 Result Diagrams: 12/28/19 05:05 12/28/19 05:05 Hospitalist ROS - Review of Systems Constitutional: denies: fever, chills Respiratory: denies: cough, shortness of breath Cardiovascular: denies: chest pain, palpitations, orthopnea Gastrointestinal: denies: nausea, vomiting, diarrhea, constipation - Medication Medications: Active Medications Generic Name Dose Route Start Last Admin Trade Name Freq PRN Reason Stop Dose Admin Acetaminophen 650 mg 12/24/19 17:51 12/28/19 09:27 Tylenol PO 650 mg Q4H PRN Administration Headache/Fever/Mild Pain (1-3) Enoxaparin Sodium 80 mg 12/27/19 21:00 12/28/19 08:50 Lovenox SC 80 mg 0900,2100 DARRION Administration Folic Acid 1 mg 12/25/19 09:00 12/28/19 08:35 Folvite PO 1 mg DAILY [facility] Administration Furosemide 20 mg 12/26/19 09:00 12/28/19 08:36 Lasix PO 20 mg DAILY [facility]ION Administration Multivitamins 10 ml/ Folic 1,011.2 mls @ 100 mls/hr 12/24/19 21:00 12/27/19 20:43 Acid 1 mg/ Thiamine HCl 100 mg IV 1,011.2 mls / Dextrose/Sodium Chloride Q24HR DARRION Administration Potassium Chloride/Dextrose/Sod Cl 1,000 mls @ 100 mls/hr 12/24/19 20:00 08:40 D5 0.9% Ns W/ 20 Meq Kcl IV 1,000 mls .Q10H DARRION Administration Iron/Minerals/Multivitamins 1 tab 12/25/19 09:00 12/28/19 08:37 Theragran M PO 1 tab DAILY [facility] Administration Ketorolac Tromethamine 10 mg 12/26/19 23:59 12/28/19 04:08 Toradol PO 12/31/19 23:59 10 mg Q6HR D[facility]ION Administration Lorazepam 1 mg 12/24/19 17:51 12/27/19 20:34 Ativan SLOW IVP 1 mg Q4H PRN Administration Anxiety/Agitation Magnesium Oxide 400 mg 12/25/19 09:00 12/28/19 08:37 Magnesium Oxide PO 400 mg DAILY [facility] Administration Melatonin 3 mg 12/24/19 22:05 12/27/19 20:34 Melatonin PO 3 mg HS PRN Administration Insomnia Nicotine 14 mg 12/25/19 21:00 12/27/19 20:34 Nicoderm Patch TOP 14 mg Q24HR DARRION Administration Pantoprazole Sodium 40 mg 12/27/19 09:00 12/28/19 08:37 Protonix PO 40 mg DAILY [facility] Administration Sodium Chloride 10 ml 12/24/19 21:00 12/28/19 08:38 Flush - Normal Saline IVF 10 ml Q12HR DARRION Administration Spironolactone 50 mg 12/26/19 08:00 12/28/19 08:35 Aldactone PO 50 mg QAM-WM DARRION Administration Thiamine HCl 100 mg 12/25/19 09:00 12/28/19 08:35 Thiamine PO 100 mg DAILY D[facility]ION Administration - Exam General Appearance: NAD, awake alert ENT: moist mucosa Heart: RRR, no murmur, no gallops, no rubs Respiratory: CTAB, no wheezes, no rales, no ronchi Gastrointestinal: soft, normal bowel sounds Gastrointestinal - other findings: mild TTP, worst in RUQ, mild fluid distension Psychiatric: normal affect, normal behavior, A&O x 3 Hosp A/P (1) Alcohol withdrawal delirium, acute, hyperactive Code(s): F10.231 - ALCOHOL DEPENDENCE WITH WITHDRAWAL DELIRIUM Status: Acute (2) Alcoholic cirrhosis of liver with ascites Code(s): K70.31 - ALCOHOLIC CIRRHOSIS OF LIVER WITH ASCITES Status: Acute (3) Alcohol abuse Code(s): F10.10 - ALCOHOL ABUSE, UNCOMPLICATED Status: Chronic (4) Renal mass Code(s): N28.89 - OTHER SPECIFIED DISORDERS OF KIDNEY AND URETER Status: Acute (5) GI bleed Code(s): K92.2 - GASTROINTESTINAL HEMORRHAGE, UNSPECIFIED Status: Acute (6) Tobacco abuse Code(s): Z72.0 - TOBACCO USE Status: Chronic - Plan Tachycardia and hypertension resolved, on ativan for ASE protocol. H/H dropped with self report of some reddish stools. Will monitor closely for any evidence of active bleeding. GI did EGD 12/26/2019 reportedly without abnormality besides some gastric varices without bleeding. H/H stable. MRI with fatty infiltration of the liver, clot in the right hepatic vein, and 1.2cm solid mass tumor to the left kidney. Dr. Angeles performing hypercoag workup and Lovenox- will need to transition to Coumadin before d/c Spoke with Dr. Rodriges and he will see and plan workup for the renal mass, likely outpatient unless needs biopsy before coumadin. DVT proph: SCDs GI proph: Protonix IV
[2019-12-28] MEDS: Lorazepam 2 MG/ML VIAL SLOW IVP PRN ×3 (13:51→23:29)
--- NOTE | 2019-12-28 15:50 | PRG ---
DATE OF SERVICE: 12/28/2019 SUBJECTIVE: Mr. Johnson has had no blood in the stool. No abdominal pain. He is wanting to go home. OBJECTIVE: VITAL SIGNS: His temperature is 97.8, pulse 83, blood pressure 108/75. GENERAL: He is in no acute distress. Alert and oriented x3. HEENT: Eyes have no scleral icterus. LUNGS: Clear to auscultation bilaterally. HEART: Regular rate and rhythm without murmur. ABDOMEN: Soft, nontender, and nondistended. Bowel sounds are present. EXTREMITIES: No lower extremity edema. LABORATORY DATA: White blood cell count 5.5, hemoglobin 12.7, platelets 138, creatinine 0.57. IMPRESSION: 1. 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 2. Alcoholic cirrhosis with portal hypertension. 3. Renal mass concerning for renal cell cancer. 4. Upper endoscopy was negative for varices or bleeding source. RECOMMENDATIONS: 1. He has tolerated therapeutic Lovenox. We will add warfarin and once this reached therapeutic range, he can likely be discharge home. 2. Hypercoagulability, blood panel has been obtained and is pending. 3. Renal mass. Per Urology, evaluation either inpatient versus outpatient. 4. Complete alcohol cessation. Job ID: [id number]
[2019-12-28] MEDS: Multivitamins, Adult 10 ML, Folic Acid 1 MG, Thiamine HCl 100 MG in Dextrose 5 %-0.45 %... IV SCH (20:34)
[2019-12-28] MEDS: Nicotine 14 MG PATCH TOP SCH (20:35)
[2019-12-28] MEDS: Melatonin 3 MG TAB PO PRN (20:35)
--- NOTE | 2019-12-28 22:51 | CON ---
DATE OF CONSULTATION: 12/28/2019 REASON FOR CONSULTATION: Renal mass. HISTORY OF PRESENT ILLNESS: Mr. Johnson is a 39-year-old gentleman with alcohol abuse. He presented to the emergency room on 12/24/2019, with nausea, vomiting, anxiety and panic attacks. As part of his workup, imaging was performed and demonstrated a 1.2 cm mass in the left kidney. In addition, he was also noted to have a thrombus in the hepatic vein. Other findings of chronic alcohol abuse included changes of the liver consistent with congestion in a heterogenicity with abnormal macro and micro nodularity, mild portosystemic shunting with esophageal and gastric varices. From urologic standpoint, he has no prior urologic history. He denies gross hematuria. In regard to his alcoholism, he has tried to quit in the past, but failed. He is motivated to try and quit again. PAST MEDICAL HISTORY: Chronic alcohol use and esophageal varices. PAST SURGICAL HISTORY: Cholecystectomy, hernia repair, and back surgery. CHRONIC MEDICATIONS: 1. Seroquel. 2. Gabapentin. SOCIAL HISTORY: He drinks vodka on a regular basis approximately 2 pints daily. He did quit two days ago. He does smoke also approximately half a pack of cigarettes per day. He lives in [place] with his mother. ALLERGIES: NO KNOWN DRUG ALLERGIES. REVIEW OF SYSTEMS: RESPIRATORY: Denies any shortness of breath. CARDIOVASCULAR: Denies chest pain or palpitations. GASTROINTESTINAL: Denies any abdominal pain. He was anorexic when he first presented, but his appetite is returning. GENITOURINARY: No voiding difficulty. PHYSICAL EXAMINATION: GENERAL: He is awake and alert. He is in no distress. He is quite pleasant. VITAL SIGNS: Blood pressure 138/82, pulse 82, and respiratory rate 16. HEENT: Normocephalic and atraumatic. NECK: Supple. No masses. CHEST: Clear to auscultation. CARDIOVASCULAR: No murmurs. ABDOMEN: Soft without tenderness. EXTREMITIES: No edema. LABORATORY DATA: MRI, 1.2 cm lesion in medial aspect of the left kidney with some enhancement on postcontrast imaging. IMPRESSION: Mr. Johnson is a 39-year-old alcoholic gentleman with an incidental 1.2 cm left renal mass. The findings are consistent with renal cell carcinoma. I have discussed these findings with him. Although, it is not possible to prove on imaging that the mass is malignant, the majority of these masses do demonstrate malignancy and for that reason, I recommended treatment as such. Currently, he is being treated with anticoagulation for thrombosis of the hepatic vein. The thrombosis and his chronic alcohol abuse are currently more pressing matters than the small renal mass. These tend to progress at a rather slow rate. I do recommend that the anticoagulation be started and the patient work on alcohol cessation. Assuming he continues to improve and demonstrates inability to remain off alcohol, a minimally not a nephron-sparing approach for management of the small renal mass will be recommended. If it can be managed percutaneously, this would be the safest option for him. If this is not deemed feasible as per Interventional Radiology, then partial nephrectomy would be the treatment of choice. I have explained the importance of followup to him. I have also explained the nonurgent nature of this condition and that his alcohol cessation is the current priority. Alcohol cessation and treatment of his hepatic vein thrombosis are the initial priority. We will make arrangements for him to follow up in our office for definitive management of the renal mass, this can be delayed safely until after anticoagulation therapy is discontinued. RECOMMENDATION: We will arrange for followup regarding the renal mass in our office. Job ID: [id number] MTDD
[2019-12-29] MEDS: D5 0.9% NS w/ 20 mEq KCl 1,000 ML IV SCH ×2 (05:06→18:03)
[2019-12-29] MEDS: Ketorolac Tromethamine 10 MG TAB PO SCH ×4 (05:10→23:54)
[2019-12-29] MEDS: Lorazepam 2 MG/ML VIAL SLOW IVP PRN ×5 (05:15→23:55)
[2019-12-29] MEDS: Furosemide 20 MG TAB PO SCH (10:15)
[2019-12-29] MEDS: Folic Acid 1 MG TAB PO SCH (10:15)
[2019-12-29] MEDS: Spironolactone 25 MG TAB PO SCH (10:16)
[2019-12-29] MEDS: Multivitamin W/ Minerals 1 TAB PO SCH (10:16)
[2019-12-29] MEDS: Magnesium Oxide 400 MG TAB PO SCH (10:16)
[2019-12-29] MEDS: Thiamine 100 MG TAB PO SCH (10:17)
[2019-12-29] MEDS: Enoxaparin Sodium 80 MG/0.8 ML SYRINGE SC SCH ×2 (10:27→19:25)
--- NOTE | 2019-12-29 13:15 | PDOC.HOSPP ---
- Subjective Encounter Date: 12/29/19 Subjective: Pt has no clinical complaints. He feels well - Objective Vital Signs & Weight: Vital Signs (12 hours) Temp Pulse Resp BP BP Pulse Ox 12/29/19 08:00 113/77 12/29/19 07:40 98.3 F 69 20 113/77 98 12/29/19 04:00 98 F 80 18 113/79 113/79 99 Weight Admit Weight 174 lb 14.4 oz Weight 174 lb 14.4 oz Most Recent Monitor Data Heart Rate from ECG 83 NIBP 119/78 NIBP BP-Mean 91 Respiration from ECG 23 SpO2 96 I&O: 12/28/19 12/29/19 12/30/19 06:59 06:59 06:59 Intake Total 1500 Output Total 1500 Balance 0 Result Diagrams: 12/28/19 05:05 12/28/19 05:05 Hospitalist ROS - Review of Systems Constitutional: denies: fever, chills, sweats, weakness, malaise, other Eyes: denies: pain, vision change, conjunctivae inflammation, eyelid inflammation, redness, other ENT: denies: ear pain, ear discharge, nose pain, nose discharge, nose congestion , mouth pain, mouth swelling, throat pain, throat swelling, other Respiratory: denies: cough, dry, shortness of breath, hemoptysis, SOB with excertion, pleuritic pain, sputum, wheezing, other Cardiovascular: denies: chest pain, palpitations, orthopnea, paroxysmal noc. dyspnea, edema, light headedness, other Gastrointestinal: denies: nausea, vomiting, abdominal pain, diarrhea, constipation, melena, hematochezia, other Genitourinary: denies: dysuria, frequency, incontinence, hematuria, retention, other Musculoskeletal: denies: neck pain, shoulder pain, arm pain, back pain, hand pain, leg pain, foot pain, other Skin: denies: rash, lesions, anne marie, bruising, other Neurological: reports: seizures. denies: weakness, numbness, incoordination, change in speech, confusion, other - Medication Medications: Active Medications Generic Name Dose Route Start Last Admin Trade Name Freq PRN Reason Stop Dose Admin Acetaminophen 650 mg 12/24/19 17:51 12/28/19 09:27 Tylenol PO 650 mg Q4H PRN Administration Headache/Fever/Mild Pain (1-3) Enoxaparin Sodium 80 mg 12/27/19 21:00 12/29/19 10:27 Lovenox SC 80 mg 0900,2100 DARRION Administration Folic Acid 1 mg 12/25/19 09:00 12/29/19 10:15 Folvite PO 1 mg DAILY D[facility]ION Administration Furosemide 20 mg 12/26/19 09:00 12/29/19 10:15 Lasix PO 20 mg DAILY D[facility]ION Administration Multivitamins 10 ml/ Folic 1,011.2 mls @ 100 mls/hr 12/24/19 21:00 12/28/19 20:34 Acid 1 mg/ Thiamine HCl 100 mg IV 1,011.2 mls / Dextrose/Sodium Chloride Q24HR DARRION Administration Potassium Chloride/Dextrose/Sod Cl 1,000 mls @ 100 mls/hr 12/24/19 20:00 05:06 D5 0.9% Ns W/ 20 Meq Kcl IV Not Given .Q10H [facility] Iron/Minerals/Multivitamins 1 tab 12/25/19 09:00 12/29/19 10:16 Theragran M PO 1 tab DAILY [facility] Administration Ketorolac Tromethamine 10 mg 12/26/19 23:59 12/29/19 05:10 Toradol PO 12/31/19 23:59 10 mg Q6HR D[facility]ION Administration Lorazepam 1 mg 12/24/19 17:51 12/29/19 10:28 Ativan SLOW IVP 1 mg Q4H PRN Administration Anxiety/Agitation Magnesium Oxide 400 mg 12/25/19 09:00 12/29/19 10:16 Magnesium Oxide PO 400 mg DAILY [facility] Administration Melatonin 3 mg 12/24/19 22:05 12/28/19 20:35 Melatonin PO 3 mg HS PRN Administration Insomnia Nicotine 14 mg 12/25/19 21:00 12/28/19 20:35 Nicoderm Patch TOP 14 mg Q24HR DARRION Administration Pantoprazole Sodium 40 mg 12/27/19 09:00 12/29/19 10:16 Protonix PO 40 mg DAILY D[facility]ION Administration Sodium Chloride 10 ml 12/24/19 21:00 12/29/19 10:34 Flush - Normal Saline IVF Not Given Q12HR DARRION Spironolactone 50 mg 12/26/19 08:00 12/29/19 10:16 Aldactone PO 50 mg QAM-WM DARRION Administration Thiamine HCl 100 mg 12/25/19 09:00 12/29/19 10:17 Thiamine PO 100 mg DAILY DARRION Administration - Exam General Appearance: NAD, awake alert, ill appearing Eye: PERRL, anicteric sclera, scleral icterus ENT: normocephalic atraumatic, moist mucosa Neck: supple, symmetric, no JVD, no lymphadenopathy Heart: RRR, no murmur, no gallops, no rubs, normal peripheral pulses Respiratory: CTAB, no wheezes, no rales, no ronchi, normal chest expansion Gastrointestinal: soft, non-tender, normal bowel sounds, no palpable masses Gastrointestinal - other findings: Slight abd distention Extremities: no cyanosis, no clubbing, no edema Skin: no lesions, no rashes Neurological: cranial nerve grossly intact, no focal deficits Musculoskeletal: normal tone, normal strength Psychiatric: normal behavior, A&O x 3 Hosp A/P (1) Alcohol withdrawal delirium, acute, hyperactive Code(s): F10.231 - ALCOHOL DEPENDENCE WITH WITHDRAWAL DELIRIUM Status: Acute (2) Alcoholic cirrhosis of liver with ascites Code(s): K70.31 - ALCOHOLIC CIRRHOSIS OF LIVER WITH ASCITES Status: Acute Plan: Stable. (3) Renal mass Code(s): N28.89 - OTHER SPECIFIED DISORDERS OF KIDNEY AND URETER Status: Acute Plan: Seen by Urology, will f/u as an out pt. (4) Tobacco abuse Code(s): Z72.0 - TOBACCO USE Status: Chronic Plan: Has been counseled. (5) Elevated liver enzymes Code(s): R74.8 - ABNORMAL LEVELS OF OTHER SERUM ENZYMES Status: Acute Plan: Stable, monitor LFTs. (6) Hepatic vein thrombosis Code(s): I82.0 - BUDD-CHIARI SYNDROME Status: Acute Plan: Has been on Lovenox. Will start Coumadin today. Will d/c on coumadin. - Plan PPx: Lovenox. CODE: FULL. Dispo: d/c in 1-3 days with therapeutic INR.
[2019-12-29] MEDS: Warfarin Sodium 5 MG TAB PO SCH (18:02)
--- NOTE | 2019-12-29 18:23 | PRG ---
DATE OF SERVICE: 12/29/2019 SUBJECTIVE: Mr. Johnson has no abdominal pain, nausea, vomiting, or other complaints. OBJECTIVE: VITAL SIGNS: Temperature 98.3, blood pressure 113/77, and pulse 69. IMPRESSION: 1. Right hepatic vein thrombosis. Budd-Chiari. He has tolerated the Lovenox so far. Endoscopy was negative for varices. 2. Alcoholic cirrhosis with portal hypertension. 3. Renal mass concerning for cancer. Urology has evaluated him and recommended outpatient followup. RECOMMENDATIONS: 1. He can discharge once his warfarin is therapeutic. He will need to have the warfarin dosing adjusted by primary care. 2. Follow up in GI clinic in 2 to 4 weeks. 3. Alcohol abstinence. I will sign off for now. Please call if GI can be of assistance. Job ID: [id number]
[2019-12-29] MEDS: Nicotine 14 MG PATCH TOP SCH (19:25)
[2019-12-29] MEDS: Melatonin 3 MG TAB PO PRN (19:25)
[2019-12-29] MEDS: Multivitamins, Adult 10 ML, Folic Acid 1 MG, Thiamine HCl 100 MG in Dextrose 5 %-0.45 %... IV SCH (20:37)
[2019-12-30] MEDS: D5 0.9% NS w/ 20 mEq KCl 1,000 ML IV SCH ×3 (02:07→18:26)
[2019-12-30] MEDS: Ketorolac Tromethamine 10 MG TAB PO SCH ×4 (05:09→23:48)
[2019-12-30] MEDS: Lorazepam 2 MG/ML VIAL SLOW IVP PRN ×5 (05:09→23:48)
[2019-12-30 06:08] LABS: INR-International Normal Ratio 1.1; Prothrombin Time 14.6 sec (12.0-14.7)
[2019-12-30 06:27] LABS: Anion Gap 13 mmol/L (10-20); BUN (Urea Nitrogen) 7 mg/dL (8.9-20.6); Calc. Creatinine Clearance 172 mL/min (70-130); Calcium 8.3 mg/dL (7.8-10.44); Carbon Dioxide 24 mmol/L (22-29); Chloride 103 mmol/L (98-107); Estimated GFR-MDRD Greater than 90; Glucose 105 mg/dL (70-105); Potassium 3.7 mmol/L (3.5-5.1); Sodium 136 mmol/L (136-145)
[2019-12-30 06:46] LABS: Band 5 % (5-11); Eosinophils 1 % (0-10); Hemoglobin 12.4 g/dL (14.0-18.0); Lymphocytes 30 % (21-51); MDiff Complete? YES; Mean Corpuscular HGB CONC 31.9 g/dL (32.0-36.0); Mean Corpuscular Hemoglobin 32.4 pg (27.0-31.0); Mean Platelet Volume 8.9 fL (7.4-10.4); Monocytes 11 % (0-10); Neutrophil 53 % (42-75); Platelet Count 147 thou/uL (130-400); RBC Distribution Width 12.8 % (11.5-14.5); Red Blood Cell (RBC) Count 3.84 mill/uL (4.70-6.10); White Blood Cell (WBC) Count 5.4 thou/uL (4.8-10.8)
[2019-12-30] MEDS: Enoxaparin Sodium 80 MG/0.8 ML SYRINGE SC SCH ×2 (08:38→20:18)
[2019-12-30] MEDS: Thiamine 100 MG TAB PO SCH (08:38)
[2019-12-30] MEDS: Magnesium Oxide 400 MG TAB PO SCH (08:38)
[2019-12-30] MEDS: Multivitamin W/ Minerals 1 TAB PO SCH (08:38)
[2019-12-30] MEDS: Folic Acid 1 MG TAB PO SCH (08:38)
[2019-12-30] MEDS: Spironolactone 25 MG TAB PO SCH (08:38)
[2019-12-30] MEDS: Furosemide 20 MG TAB PO SCH (08:38)
--- NOTE | 2019-12-30 11:38 | PDOC.HOSPP ---
- Subjective Encounter Date: 12/30/19 Encounter Time: 11:36 Subjective: asymptomatic - Objective Vital Signs & Weight: Vital Signs (12 hours) Temp Pulse Resp BP BP Pulse Ox 12/30/19 08:32 98.4 F 76 18 122/86 98 12/30/19 04:00 97.9 F 79 18 115/77 115/77 98 12/30/19 00:00 98 F 87 18 117/81 117/81 97 Weight Admit Weight 174 lb 14.4 oz Weight 174 lb 14.4 oz Most Recent Monitor Data Heart Rate from ECG 83 NIBP 119/78 NIBP BP-Mean 91 Respiration from ECG 23 SpO2 96 I&O: 12/29/19 12/30/19 12/31/19 06:59 06:59 06:59 Intake Total 1500 4100 Output Total 1500 1200 Balance 0 2900 Result Diagrams: 12/30/19 05:34 12/30/19 05:34 Hospitalist ROS - Medication Medications: Active Medications Generic Name Dose Route Start Last Admin Trade Name Freq PRN Reason Stop Dose Admin Acetaminophen 650 mg 12/24/19 17:51 12/28/19 09:27 Tylenol PO 650 mg Q4H PRN Administration Headache/Fever/Mild Pain (1-3) Enoxaparin Sodium 80 mg 12/27/19 21:00 12/30/19 08:38 Lovenox SC 80 mg 0900,2100 DARRION Administration Folic Acid 1 mg 12/25/19 09:00 12/30/19 08:38 Folvite PO 1 mg DAILY DARRION Administration Furosemide 20 mg 12/26/19 09:00 12/30/19 08:38 Lasix PO 20 mg DAILY DARRION Administration Multivitamins 10 ml/ Folic 1,011.2 mls @ 100 mls/hr 12/24/19 21:00 12/29/19 20:37 Acid 1 mg/ Thiamine HCl 100 mg IV 1,011.2 mls / Dextrose/Sodium Chloride Q24HR DARRION Administration Potassium Chloride/Dextrose/Sod Cl 1,000 mls @ 100 mls/hr 12/24/19 20:00 08:37 D5 0.9% Ns W/ 20 Meq Kcl IV 1,000 mls .Q10H DARRION Administration Iron/Minerals/Multivitamins 1 tab 12/25/19 09:00 12/30/19 08:38 Theragran M PO 1 tab DAILY DARRION Administration Ketorolac Tromethamine 10 mg 12/26/19 23:59 12/30/19 05:09 Toradol PO 12/31/19 23:59 10 mg Q6HR DARRION Administration Lorazepam 1 mg 12/24/19 17:51 12/30/19 10:30 Ativan SLOW IVP 1 mg Q4H PRN Administration Anxiety/Agitation Magnesium Oxide 400 mg 12/25/19 09:00 12/30/19 08:38 Magnesium Oxide PO 400 mg DAILY DARRION Administration Melatonin 3 mg 12/24/19 22:05 12/29/19 19:25 Melatonin PO 3 mg HS PRN Administration Insomnia Nicotine 14 mg 12/25/19 21:00 12/29/19 19:25 Nicoderm Patch TOP 14 mg Q24HR DARRION Administration Pantoprazole Sodium 40 mg 12/27/19 09:00 12/30/19 08:38 Protonix PO 40 mg DAILY DARRION Administration Sodium Chloride 10 ml 12/24/19 21:00 12/30/19 08:39 Flush - Normal Saline IVF Not Given Q12HR DARRION Spironolactone 50 mg 12/26/19 08:00 12/30/19 08:38 Aldactone PO 50 mg QAM-WM DARRION Administration Thiamine HCl 100 mg 12/25/19 09:00 12/30/19 08:38 Thiamine PO 100 mg DAILY DARRION Administration Warfarin Sodium 5 mg 12/29/19 17:00 12/29/19 18:02 Coumadin PO 5 mg 1700 DARRION Administration - Exam General Appearance: awake alert Neck: no JVD Heart: RRR, no murmur Respiratory: CTAB Gastrointestinal: soft, normal bowel sounds Extremities: no edema Hosp A/P (1) Alcohol withdrawal delirium, acute, hyperactive Code(s): F10.231 - ALCOHOL DEPENDENCE WITH WITHDRAWAL DELIRIUM Status: Acute (2) Alcoholic cirrhosis of liver with ascites Code(s): K70.31 - ALCOHOLIC CIRRHOSIS OF LIVER WITH ASCITES Status: Acute (3) Hepatic vein thrombosis Code(s): 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
[2019-12-30] MEDS: Warfarin Sodium 5 MG TAB PO SCH (18:27)
[2019-12-30] MEDS: Nicotine 14 MG PATCH TOP SCH (20:19)
[2019-12-30] MEDS: Multivitamins, Adult 10 ML, Folic Acid 1 MG, Thiamine HCl 100 MG in Dextrose 5 %-0.45 %... IV SCH (21:02)
[2019-12-30] MEDS: Melatonin 3 MG TAB PO PRN (23:48)
[2019-12-31] MEDS: Lorazepam 2 MG/ML VIAL SLOW IVP PRN ×5 (04:24→20:25)
[2019-12-31 05:34] LABS: INR-International Normal Ratio 1.2
[2019-12-31] MEDS: Ketorolac Tromethamine 10 MG TAB PO SCH (05:55)
[2019-12-31] MEDS: Magnesium Oxide 400 MG TAB PO SCH (08:22)
[2019-12-31] MEDS: Furosemide 20 MG TAB PO SCH ×2 (08:22→08:55)
[2019-12-31] MEDS: Folic Acid 1 MG TAB PO SCH ×2 (08:22→08:54)
[2019-12-31] MEDS: Multivitamin W/ Minerals 1 TAB PO SCH (08:22)
[2019-12-31] MEDS: Spironolactone 25 MG TAB PO SCH (08:23)
[2019-12-31] MEDS: Thiamine 100 MG TAB PO SCH (08:23)
[2019-12-31] MEDS: D5 0.9% NS w/ 20 mEq KCl 1,000 ML IV SCH ×3 (08:25→18:43)
[2019-12-31] MEDS: Enoxaparin Sodium 80 MG/0.8 ML SYRINGE SC SCH ×2 (09:14→20:26)
--- NOTE | 2019-12-31 11:28 | PDOC.HOSPP ---
- Subjective Encounter Date: 12/31/19 Encounter Time: 11:26 Subjective: doing well, bored in hospital - Objective Vital Signs & Weight: Vital Signs (12 hours) Temp Pulse Resp BP BP Pulse Ox 12/31/19 09:02 98.3 F 69 18 127/83 99 12/31/19 08:00 127/83 99 12/31/19 04:00 97.9 F 74 20 111/78 111/78 97 12/31/19 00:13 98.1 F 86 20 122/78 97 12/31/19 00:00 122/78 Weight Admit Weight 174 lb 14.4 oz Weight 174 lb 14.4 oz Most Recent Monitor Data Heart Rate from ECG 83 NIBP 119/78 NIBP BP-Mean 91 Respiration from ECG 23 SpO2 96 I&O: 12/30/19 12/31/19 01/01/20 06:59 06:59 06:59 Intake Total 4100 1120 Output Total 1200 Balance 2900 1120 Result Diagrams: 12/30/19 05:34 12/30/19 05:34 Hospitalist ROS - Medication Medications: Active Medications Generic Name Dose Route Start Last Admin Trade Name Freq PRN Reason Stop Dose Admin Acetaminophen 650 mg 12/24/19 17:51 12/28/19 09:27 Tylenol PO 650 mg Q4H PRN Administration Headache/Fever/Mild Pain (1-3) Enoxaparin Sodium 80 mg 12/27/19 21:00 12/31/19 09:14 Lovenox SC 80 mg 0900,2100 DARRION Administration Folic Acid 1 mg 12/25/19 09:00 12/31/19 08:54 Folvite PO 1 mg DAILY DARRION Administration Furosemide 20 mg 12/26/19 09:00 12/31/19 08:55 Lasix PO Not Given DAILY [facility] Multivitamins 10 ml/ Folic 1,011.2 mls @ 100 mls/hr 12/24/19 21:00 12/30/19 21:02 Acid 1 mg/ Thiamine HCl 100 mg IV 1,011.2 mls / Dextrose/Sodium Chloride Q24HR DARRION Administration Potassium Chloride/Dextrose/Sod Cl 1,000 mls @ 100 mls/hr 12/24/19 20:00 05/20 08:25 D5 0.9% Ns W/ 20 Meq Kcl IV 1,000 mls .Q10H DARRION Administration Iron/Minerals/Multivitamins 1 tab 12/25/19 09:00 12/31/19 08:22 Theragran M PO 1 tab DAILY DARRION Administration Lorazepam 1 mg 12/24/19 17:51 12/31/19 08:23 Ativan SLOW IVP 1 mg Q4H PRN Administration Anxiety/Agitation Magnesium Oxide 400 mg 12/25/19 09:00 12/31/19 08:22 Magnesium Oxide PO 400 mg DAILY DARRION Administration Melatonin 3 mg 12/24/19 22:05 12/30/19 23:48 Melatonin PO 3 mg HS PRN Administration Insomnia Nicotine 14 mg 12/25/19 21:00 12/30/19 20:19 Nicoderm Patch TOP 14 mg Q24HR DARRION Administration Pantoprazole Sodium 40 mg 12/27/19 09:00 12/31/19 08:23 Protonix PO 40 mg DAILY DARRION Administration Sodium Chloride 10 ml 12/24/19 21:00 12/31/19 08:25 Flush - Normal Saline IVF 10 ml Q12HR DARRION Administration Spironolactone 50 mg 12/26/19 08:00 12/31/19 08:23 Aldactone PO 50 mg QAM-WM DARRION Administration Thiamine HCl 100 mg 12/25/19 09:00 12/31/19 08:23 Thiamine PO 100 mg DAILY DARRION Administration - Exam General Appearance: awake alert Neck: no JVD Heart: RRR, no murmur Respiratory: CTAB, no wheezes Gastrointestinal: soft, normal bowel sounds Extremities: no edema Hosp A/P (1) Alcohol withdrawal delirium, acute, hyperactive Code(s): F10.231 - ALCOHOL DEPENDENCE WITH WITHDRAWAL DELIRIUM Status: Acute (2) Alcoholic cirrhosis of liver with ascites Code(s): K70.31 - ALCOHOLIC CIRRHOSIS OF LIVER WITH ASCITES Status: Acute (3) Hepatic vein thrombosis Code(s): I82.0 - BUDD-CHIARI SYNDROME Status: Acute (4) Renal mass Code(s): N28.89 - OTHER SPECIFIED DISORDERS OF KIDNEY AND URETER Status: Acute (5) Tobacco abuse Code(s): Z72.0 - TOBACCO USE Status: Chronic (6) Elevated liver enzymes Code(s): R74.8 - ABNORMAL LEVELS OF OTHER SERUM ENZYMES Status: Acute - Plan warfarin anticoag started cont bridgeing lovenox CM for outpt lovenox, PCP confirmation discussed tx with patient, he expresses understanding
[2019-12-31 14:30] LABS: Cardiolipin IgA Ab 1.4 APL-U/mL (<14 Negative); Cardiolipin IgG Ab 0.6 GPL-U/mL (<10 Negative); Cardiolipin IgM Ab Less than 0.8 MPL-U/mL (<10 Negative); EliA APS New Method **** NEW METHOD ****
[2019-12-31] MEDS ORDERED: Warfarin Sodium 7.5 MG TAB PO SCH (17:00)
[2019-12-31] MEDS: Nicotine 14 MG PATCH TOP SCH (20:26)
[2019-12-31] MEDS: Multivitamins, Adult 10 ML, Folic Acid 1 MG, Thiamine HCl 100 MG in Dextrose 5 %-0.45 %... IV SCH (20:26)
[2020-01-01] MEDS: Lorazepam 2 MG/ML VIAL SLOW IVP PRN ×3 (00:10→10:30)
[2020-01-01] MEDS: Melatonin 3 MG TAB PO PRN (00:10)
[2020-01-01 06:32] LABS: INR-International Normal Ratio 1.2; Prothrombin Time 15.1 sec (12.0-14.7)
[2020-01-01] MEDS: Spironolactone 25 MG TAB PO SCH (08:36)
[2020-01-01] MEDS: Furosemide 20 MG TAB PO SCH (08:36)
[2020-01-01] MEDS: Enoxaparin Sodium 80 MG/0.8 ML SYRINGE SC SCH (08:37)
[2020-01-01] MEDS: Folic Acid 1 MG TAB PO SCH (08:37)
[2020-01-01] MEDS: Multivitamin W/ Minerals 1 TAB PO SCH (08:37)
[2020-01-01] MEDS: Magnesium Oxide 400 MG TAB PO SCH (08:37)
[2020-01-01] MEDS: Thiamine 100 MG TAB PO SCH (08:37)
[2020-01-01] MEDS ORDERED: Apixaban 5 MG TAB PO SCH (09:00)
--- NOTE | 2020-01-01 09:58 | DIS ---
DATE OF ADMISSION: 12/24/2019 DATE OF DISCHARGE: 01/01/2020 DISCHARGE DISPOSITION: Home. He was admitted without a PCP, but has been accepted as a patient of Dr. Franky Olivera. 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 DISCHARGE MEDICATIONS: 1. Thiamine 100 mg a day. 2. Seroquel 50 mg at bedtime. 3. Protonix 40 mg twice a day. 4. Folic acid 1 mg a day. 5. Aldactone 50 mg p.o. q.a.m., new. 6. Eliquis 5 mg p.o. b.i.d., new. ALLERGIES: NO KNOWN DRUG ALLERGIES. CODE STATUS: Full. PENDING AT TIME OF DISCHARGE: Nothing. DIET: As tolerated. HOSPITAL COURSE: Consultation, gastroenterology, initially, Dr. Teja Darnell. Procedures on 12/26/2019, esophagogastroduodenoscopy by Dr. Misha Angeles, mild portal hypertensive gastropathy, consultation with Dr. Leandro Rodriges, renal mass. He will follow him up as an outpatient. The patient was placed in the hospital through the emergency room to the hospitalist service, nausea, vomiting, confusion. He has a history of some nausea, vomiting with Jeannie-Sam tear previously, diagnosis of acute alcohol withdrawal syndrome treated with ASE protocol, found to have chronic liver disease. PT, INR dramatically abnormal. MRI also revealed a mass on his kidney. The patient was cautioned on alcohol cessation. Diagnosis of alcoholic cirrhosis with portal hypertension was made. There was thrombosis of the right hepatic vein. He was started on therapeutic Lovenox. COVID was negative. Workup for hypercoagulable state revealed anticardiolipin IgG AB of 0.6, IgA AB of 1.4. The patient was started on Coumadin anticoagulation after 5 days since PT/INR was not significantly improved. This was discussed with Dr. Angeles today. We agreed on transition from Coumadin to Eliquis for him to be followed up as an outpatient. He has been cautioned about bleeding disorders, etc necessity of taking the medicine. FOLLOWUP: Primary will be with Dr. Franky Olivera. He will also need follow up with Dr. Misha Angeles, and follow up with Dr. Leandro Rodriges. Job ID: [id number]
[2020-01-01 10:51] VITALS: BP 112/73; TEMP 97.4
[2020-01-01 12:53] LABS: Protein C Activity 68 % (78-152)
[2020-01-01 13:02] LABS: Factor VIII Test 412.9 % ACTIVE (56-157)
[2020-01-01] MEDS ORDERED: Enoxaparin Sodium 80 MG/0.8 ML SYRINGE SC SCH (21:00)
[2020-01-03 10:55] LABS: HEX PHOS LA Tube 1 25.4 SEC; HEX PHOS LA Tube 2 24.8 SEC; Hexagonal Phospholipid Neut 0.6 SEC (0-8.0)
== END 2020-01-01 10:53 | disposition home or self-care (01) | DRG 432 ==
LOC: ERS 11:51 → IMCU/EMU 15:52 → T4-A 12-26 14:24
PROVIDERS: ADMIT Emergency Medicine; ATTEND Emergency Medicine
PROC: 0DJ08ZZ Inspection of Upper Intestinal Tract, Via Natural or Artificial Opening Endoscopic (ICD-10-PCS; principal; 2019-12-26)
DX: K70.31 Alcoholic cirrhosis of liver with ascites (principal); I82.0 Budd-Chiari syndrome; F10.231 Alcohol dependence with withdrawal delirium; K76.6 Portal hypertension; C64.2 Malignant neoplasm of left kidney, except renal pelvis; K92.2 Gastrointestinal hemorrhage, unspecified; D68.59 Other primary thrombophilia; Z20.828 Contact with and (suspected) exposure to other viral communicable diseases; F41.9 Anxiety disorder, unspecified; F17.210 Nicotine dependence, cigarettes, uncomplicated; K70.11 Alcoholic hepatitis with ascites; K31.89 Other diseases of stomach and duodenum; K76.0 Fatty (change of) liver, not elsewhere classified; F31.9 Bipolar disorder, unspecified; Z90.49 Acquired absence of other specified parts of digestive tract; Z79.899 Other long term (current) drug therapy
CPT/HCPCS: 36415; 49082; 74177; 74183; 80048; 80053; 80076; 81003; 81015; 81240; 81241; 82042; 82105; 82274; 82945; 83090; 83605; 83690; 83735; 84100; 84157; 85025; 85060; 85240; 85300; 85303; 85305; 85307; 85379; 85598; 85610; 85730; 86147; 87040; 87070; 87086; 87205; 87635; 89051; 93005; 96361; 96365; 96367; 96375; 96376; A9579; C9113; J0692; J1650; J2001; J2060; J2704; J3010; J3411; J3475; J3480; J3490; J7042; Q9967; U0003

== ENCOUNTER 2020-01-17 10:07 | Day surgery (SDC) | payer BC ==
[2020-01-17] MEDS ORDERED: Lidocaine 1% PF 5 ML VIAL ONE (11:23)
[2020-01-17] MEDS ORDERED: Sodium Bicarbonate 2.5 MEQ/5 ML VIAL ONE (11:23)
[2020-01-17 13:07] VITALS: BMI 25.1
--- NOTE | 2020-01-17 13:18 | ULT ---
Exam: Ultrasound guided paracentesis HISTORY: Ascites COMPARISON: None FINDINGS: Successful ultrasound-guided paracentesis. Total of 6 L of yellow color ascites was aspirat ed. TECHNIQUE: Consent obtained reformatory ultrasound-guided paracentesis. Right lower quadrant was deem ed appropriate. Skin was prepped and draped in a sterile fashion. 1% lidocaine, buffered with sodium bicarbonate was used for local anesthesia. Under ultrasound guidance, a 5 Latvian 7 cm Yueh cat heter is advanced in the peritoneal space. A total of 6 L of yellow color ascites was aspirated. No immediate or postprocedural complications IMPRESSION: Successful ultrasound-guided paracentesis.
[2020-01-17 13:19] VITALS: BP 141/95; TEMP 99
== END 2020-01-17 12:28 | disposition home or self-care (01) ==
LOC: ULT 10:07
PROVIDERS: ATTEND Physician Assistant Medical
PROC: 0W9G3ZZ Drainage of Peritoneal Cavity, Percutaneous Approach (ICD-10-PCS; principal; 2020-01-17)
PROC: BW40ZZZ Ultrasonography of Abdomen (ICD-10-PCS; principal; 2020-01-17)
DX: K74.60 Unspecified cirrhosis of liver (principal); R18.8 Other ascites; F31.9 Bipolar disorder, unspecified; Z79.899 Other long term (current) drug therapy
CPT/HCPCS: 49083

== ENCOUNTER 2020-02-08 02:50 | Emergency (ER) | payer BC, SELFPAY | END 2020-02-08 04:17 | disposition home or self-care (01) | LOC: ERS 02:50 | DX: K74.60 Unspecified cirrhosis of liver (principal); R18.8 Other ascites; K76.0 Fatty (change of) liver, not elsewhere classified; F31.9 Bipolar disorder, unspecified; F17.210 Nicotine dependence, cigarettes, uncomplicated; Z79.01 Long term (current) use of anticoagulants | CPT/HCPCS: 93005 ==

== ENCOUNTER 2020-02-10 10:19 | Day surgery (SDC) | payer BC, OTHER ==
[2020-02-10 10:53] LABS: #Basophils 0.1 thou/uL (0.0-0.2); #Eosinphils 0.1 thou/uL (0.0-0.7); #Lymphocytes 2.1 thou/uL (1.20-3.40); #Monocytes 1.3 thou/uL (0.11-0.59); #Neutrophils 5.9 thou/uL (1.40-6.50); %Basophils 0.6 % (0.0-1.0); %Eosinophils 1.1 % (0.0-10.0); %Lymphocytes 21.8 % (21.0-51.0); %Monocytes 13.7 % (0.0-10.0); %Neutrophils 62.9 % (42.0-75.0); Hemoglobin 14.4 g/dL (14.0-18.0); Mean Corpuscular HGB CONC 33.9 g/dL (32.0-36.0); Mean Corpuscular Hemoglobin 32.1 pg (27.0-31.0); Mean Corpuscular Volume 94.7 fL (78.0-98.0); Mean Platelet Volume 7.8 fL (7.4-10.4); Platelet Count 207 thou/uL (130-400); RBC Distribution Width 14.5 % (11.5-14.5); White Blood Cell (WBC) Count 9.5 thou/uL (4.8-10.8)
[2020-02-10 10:59] LABS: INR-International Normal Ratio 1.2; Prothrombin Time 15.4 sec (12.0-14.7)
--- NOTE | 2020-02-10 12:07 | ULT ---
Ultrasound-guided paracentesis: HISTORY: Cirrhosis and recurrent ascites FINDINGS: Informed consent obtained prior to the procedure. Preprocedural imaging demonstrated intrap eritoneal free fluid. An area was marked in the Right lower quadrant mid axillary line, and then meticulously prepped and d raped in normal sterile fashion and anesthetized with 1% buffered lidocaine. With direct sonographic guidance, a 19-gauge needle and 5 Icelandic Yueh catheter were advanced into the abdomen. After the return of fluid, the catheter was advanced, and the needle was removed. Approximately 6 L of clear straw-colored fluid was aspirated. The introducer sheath was removed, and hemostasis was achieved with direct pressure. A dry sterile dressing was placed. The patient tolerated the procedure well and without immediate complication. IMPRESSION: Technically successful ultrasound-guided paracentesis.
[2020-02-10 12:49] VITALS: BP 127/88; TEMP 98.5
== END 2020-02-10 12:25 | disposition home or self-care (01) ==
LOC: ULT 10:19
PROVIDERS: ATTEND Internal Medicine Gastroenterology
PROC: BW40ZZZ Ultrasonography of Abdomen (ICD-10-PCS; principal; 2020-02-10)
PROC: 0W9G3ZZ Drainage of Peritoneal Cavity, Percutaneous Approach (ICD-10-PCS; principal; 2020-02-10)
DX: K74.60 Unspecified cirrhosis of liver (principal); R18.8 Other ascites; K76.0 Fatty (change of) liver, not elsewhere classified; F31.9 Bipolar disorder, unspecified; F41.9 Anxiety disorder, unspecified; F17.200 Nicotine dependence, unspecified, uncomplicated
CPT/HCPCS: 36415; 49083; 85025; 85610

== ENCOUNTER 2020-02-17 05:44 | Inpatient (IN) | payer BC, OTHER ==
[2020-02-17] MEDS ORDERED: Ondansetron PF 4 MG/2 ML Vial ONE ×2 (06:00→10:42)
[2020-02-17] MEDS ORDERED: Pantoprazole 40 MG VIAL ONE (06:28)
[2020-02-17] MEDS ORDERED: cefTRIAXone\\ROCEPHIN 1 GM VIAL ONE (06:28)
[2020-02-17] MEDS ORDERED: Octreotide Acetate 50 MCG/ML AMP ONE (06:31)
[2020-02-17 06:46] LABS: #Basophils 0.1 thou/uL (0.0-0.2); #Lymphocytes 1.8 thou/uL (1.20-3.40); #Monocytes 1.5 thou/uL (0.11-0.59); #Neutrophils 7.4 thou/uL (1.40-6.50); %Basophils 0.6 % (0.0-1.0); %Eosinophils 0.3 % (0.0-10.0); %Lymphocytes 16.7 % (21.0-51.0); %Monocytes 13.9 % (0.0-10.0); %Neutrophils 68.5 % (42.0-75.0); Hemoglobin 14.9 g/dL (14.0-18.0); Mean Corpuscular HGB CONC 33.3 g/dL (32.0-36.0); Mean Corpuscular Hemoglobin 31.7 pg (27.0-31.0); Mean Corpuscular Volume 95.2 fL (78.0-98.0); Mean Platelet Volume 7.6 fL (7.4-10.4); Platelet Count 304 thou/uL (130-400); RBC Distribution Width 15.1 % (11.5-14.5); Red Blood Cell (RBC) Count 4.71 mill/uL (4.70-6.10); White Blood Cell (WBC) Count 10.8 thou/uL (4.8-10.8)
[2020-02-17 06:55] LABS: INR-International Normal Ratio 1.1; PTT 29.4 sec (22.9-36.1); Prothrombin Time 14.8 sec (12.0-14.7)
[2020-02-17 07:12] LABS: ALT (SGPT) 90 U/L (8-55); AST (SGOT) 179 U/L (5-34); Albumin 3.3 g/dL (3.5-5.0); Alkaline Phosphatase 421 U/L (40-110); Anion Gap 20 mmol/L (10-20); BUN (Urea Nitrogen) 12 mg/dL (8.9-20.6); Bilirubin, Total 2.3 mg/dL (0.2-1.2); Calc. Creatinine Clearance 0 mL/min (70-130); Calcium 8.7 mg/dL (7.8-10.44); Carbon Dioxide 20 mmol/L (22-29); Chloride 95 mmol/L (98-107); Estimated GFR-MDRD Greater than 90; Globulin 4.2 g/dL (2.4-3.5); Glucose 121 mg/dL (70-105); Potassium 4.6 mmol/L (3.5-5.1); Protein, Total 7.5 g/dL (6.0-8.3); Sodium 130 mmol/L (136-145)
--- NOTE | 2020-02-17 07:29 | RAD ---
Exam: Chest one view HISTORY:Hemoptysis. Comparison: 12/07/2019 FINDINGS: Cardiac silhouette: Normal Aorta: Unremarkable Pulmonary vessels: Normal Costophrenic angles: Clear LUNGS: No masses or consolidation. Pneumothorax: None Osseous abnormalities: Chronic changes to the distal right clavicle. IMPRESSION: No acute cardiopulmonary process.
[2020-02-17] MEDS ORDERED: Morphine 4 MG/ML VIAL ONE ×2 (07:48→09:29)
[2020-02-17] MEDS ORDERED: Nicotine 14 MG PATCH TD PRN (09:35)
--- NOTE | 2020-02-17 10:39 | HP ---
CHIEF COMPLAINT: Vomiting blood. HISTORY OF PRESENT ILLNESS: This is a 39-year-old male with history of cirrhosis; portal vein thrombosis, on Eliquis; recurrent abdominal ascites; bipolar disorder; who presents to the emergency room with the above complaint. The patient reports at 1 a.m., he woke up and has approximately vomited 5 times with both bright red blood and maroon blood. He reports intermittent nausea and abdominal pain over the past few days. The pain is throughout his abdomen, worse in the upper quadrants. He has had poor p.o. intake over this time. He denies any recent alcohol use, denies any fevers or chills. He denies any precipitating or relieving factors. He does have recurrent paracentesis, which he states that recently becomes about every 2 weeks. He is followed by Dr. Angeles of GI. The patient denies any precipitating or relieving factors. He rates his pain as 9/10 in severity. He did vomit a small amount here in the emergency room once today. In the emergency room, the patient received 4 mg of Zofran IV, Protonix 40 mg IV followed by 80 mg IV and started on an infusion, 1 g of ceftriaxone, 1 L of IV fluids, 4 mg of morphine, and hospitalist called for admission. ALLERGIES: NO KNOWN DRUG ALLERGIES. CURRENT MEDICATIONS: List provided by the patient's mom; 1. Eliquis 5 mg b.i.d. 2. Spironolactone 50 mg daily. 3. Protonix 40 mg daily. 4. Lexapro 10 mg daily. 5. Seroquel 50 mg at bedtime. PAST MEDICAL HISTORY: 1. Cirrhosis, recurrent ascites. 2. History of fatty liver. 3. Portal vein thrombosis. 4. Bipolar disorder. PAST SURGICAL HISTORY: 1. Cholecystectomy. 2. Back surgery. 3. Hernia repair. SOCIAL HISTORY: The patient does have a history of alcohol use, he denies this currently. He uses 1/2 pack of tobacco per day. He is a full code and his mom is the surrogate decision maker. FAMILY HISTORY: Significant for heart disease. REVIEW OF SYSTEMS: Negative for fevers, chills, chest pain, palpitations, or blood noted in the stool. Positive for nausea, abdominal pain. All remaining review of systems are reviewed and negative. PHYSICAL EXAMINATION: VITAL SIGNS: Blood pressure 143/97, pulse 102, respirations 21, temperature 98, saturations 94% on room air. GENERAL: He is awake, alert, anxious-appearing, not in immediate distress. HEENT: No scleral icterus. Oral mucosa is pink and dry. NECK: Supple and nontender. LYMPHATICS: No palpable cervical or supraclavicular lymphadenopathy. LUNGS: Clear to auscultation bilaterally. No audible wheezing, rhonchi, or rales. HEART: Normal S1 and S2. No significant murmurs. ABDOMEN: Distended, consistent with ascites. Present bowel sounds. Tenderness to palpation throughout. EXTREMITIES: No clubbing, cyanosis, or edema. SKIN: He has crusting on his bilateral knees, by report this is from this morning, and vomiting. NEUROLOGIC: No focal deficits noted. The patient is tremulous. PSYCH: Unable to adequately assess, given the patient's complaint of pain. VASCULAR: 2+ dorsalis pedis pulses. LABORATORY DATA: Reviewed. CBC; 10.8, 14.9, 44.9, 304. INR 1.1. Chemistry; 130, 4.6, 95, 20, 12, 0.71, 121. Lactic acid 4.1. Total bilirubin 2.3, AST 179, ALT 90, alkaline phosphatase 421, total protein 7.5, albumin 3.3. Chest x-ray is personally reviewed. No acute process. IMPRESSION: 1. Hematemesis in the context of known cirrhosis, portal vein thrombosis, on full anticoagulation. 2. Hyponatremia, likely hypovolemic, secondary to dehydration due to the nausea, vomiting, and abdominal pain that has been ongoing. 3. Dehydration. 4. Tremor. 5. Tobacco abuse. 6. Bipolar disorder. 7. Portal vein thrombosis, on full anticoagulation. 8. Recurrent ascites. PLAN: 1. Admission to the hospital. We will start in the IMCU. 2. IV fluid hydration. 3. GI consultation. 4. Monitoring his hemoglobin and hematocrit. He has been typed and screened, and transfuse if there are significant changes or any hemodynamic instability. 5. Continuing the IV Protonix as well as the IV Rocephin. 6. Anticipate the ascites will worsen with the IV fluid hydration, we will monitor this. 7. ASE protocol, check a urine drug screen, and check a plasma alcohol level. 8. Nicotine replacement as needed. 9. N.p.o. for now, holding his outpatient medications. 10. Monitoring his sodium level with rehydration as well as lactate level. 11. DVT prophylaxis with pneumatic compression devices, not a candidate for pharmacologic due to the bleeding and the patient has been on Eliquis. 12. GI prophylaxis, will be on IV Protonix drip. 13. Code status is full. Surrogate decision maker is the patient's mom. 14. The patient is at high risk, given age, comorbidities, and current presentation. 15. Reviewed the plan of care with the patient and his mom at the bedside. No questions or further needs at the end of evaluation. Addendum - after H&P dictated, plasma alcohol level 19 (negative by the lab standard is less than 10) Job ID: [id number] MTDD
[2020-02-17] MEDS ORDERED: Ondansetron PF 4 MG/2 ML Vial IVP SCH (10:45)
[2020-02-17 12:30] LABS: Hemoglobin 13.3 g/dL (14.0-18.0)
[2020-02-17 12:50] LABS: Lactic Acid 3.6 mmol/L (0.5-2.2)
[2020-02-17] MEDS: Sodium Chloride 0.9% 1,000 ML IV SCH ×3 (14:03→17:41)
[2020-02-17] MEDS: Morphine 4 MG/ML VIAL SLOW IVP PRN ×3 (14:17→22:27)
[2020-02-17 14:39] VITALS: BMI 25.7
[2020-02-17 15:40] LABS: Hemoglobin 12.7 g/dL (14.0-18.0)
[2020-02-17 15:58] LABS: Lactic Acid 2.1 mmol/L (0.5-2.2)
[2020-02-17 16:01] LABS: Anion Gap 16 mmol/L (10-20); BUN (Urea Nitrogen) 12 mg/dL (8.9-20.6); Calc. Creatinine Clearance 168 mL/min (70-130); Calcium 8.1 mg/dL (7.8-10.44); Carbon Dioxide 18 mmol/L (22-29); Chloride 101 mmol/L (98-107); Estimated GFR-MDRD Greater than 90; Glucose 107 mg/dL (70-105); Potassium 4.8 mmol/L (3.5-5.1); Sodium 130 mmol/L (136-145)
[2020-02-17 16:38] LABS: SARS-CoV-2 MS2 Positive; SARS-CoV-2 N Gene Negative; SARS-CoV-2 S Gene Negative; SARS-CoV-2 by NAA Not Detected (NotDetected); SARS-CoV-2 orf1ab Negative
[2020-02-17] MEDS: Ondansetron PF 4 MG/2 ML Vial IVP PRN (16:50)
[2020-02-17] MEDS ORDERED: Diazepam 5 MG TAB PO PRN (17:02)
[2020-02-17] MEDS ORDERED: Diazepam 5 MG TAB PO SCH (17:15)
[2020-02-17] MEDS: Pantoprazole 80 MG in Sodium Chloride 0.9% 100 ML IVPB SCH (17:38)
[2020-02-17] MEDS ORDERED: Octreotide Acetate 100 MCG/ML VIAL SLOW IVP SCH ×2 (18:30→20:00)
[2020-02-17] MEDS ORDERED: Octreotide Acetate 1,250 MCG in Sodium Chloride 0.9% 250 ML 250 ML IVPB SCH (18:30)
[2020-02-17 19:01] LABS: Amphetamine Not Detected (NotDetected); Barbiturates Screen Not Detected (NotDetected); Benzodiazepine Screen Not Detected (NotDetected); Cocaine Metabolite Screen Not Detected (NotDetected); Medtox Control Line Valid? VALID (VALID); Medtox Reader # READER 4; Methadone Not Detected (NotDetected); Methamphetamine Not Detected (NotDetected); Opiate Screen Detected (NotDetected); Oxycodone Screen Not Detected (NotDetected); Phencyclidine (PCP) Not Detected (NotDetected); THC/Cannabinoid Screen Not Detected (NotDetected); Tricyclic Screen Not Detected (NotDetected)
[2020-02-17] MEDS: Multivitamins, Adult 10 ML, Folic Acid 1 MG, Thiamine HCl 100 MG in Dextrose 5 %-0.45 %... IV SCH (20:18)
--- NOTE | 2020-02-17 22:14 | CON ---
DATE OF CONSULTATION: 02/17/2020 CHIEF COMPLAINT: Vomited blood, abdominal pain. HISTORY OF PRESENT ILLNESS: Mr. Johnson is a 39-year-old man who yesterday developed multiple episodes of nausea and vomiting with dark red bloody stool. This started about actually 1 o'clock this morning. He has vomited several times, sometimes brighter red blood and sometimes darker red blood. This afternoon, he drank some water and just threw out clear water, but then throughout some drops of blood after that as well. He has had abdominal distention and discomfort from ascites. He has diffuse pressure type abdominal pain. He has been having shaking and tremors, but no hallucinations. He states his last drink of alcohol was a month ago. However, there was trace alcohol based on his level from the ER this afternoon. He has had no black stools or bloody bowel movements. No fever with this. PAST MEDICAL HISTORY: He had recent admission with diagnosis of alcoholic cirrhosis and hepatic vein thrombosis (Budd-Chiari syndrome). Since then, he has had ascites requiring paracentesis. He has a history of bipolar disorder. He has had a renal mass that appeared concerning for renal cancer by MRI and he has postop followup with Urology as an outpatient regarding that. Dr. Wilkinson with [facility] saw him last time he was in the hospital. PAST SURGICAL HISTORY: Cholecystectomy, back surgery, hernia repair. FAMILY HISTORY: Negative for GI malignancy. SOCIAL HISTORY: Smokes half pack a day. Reportedly quit alcohol a month ago. No drugs. ALLERGIES: NO KNOWN DRUG ALLERGIES. MEDICATIONS: Prior to admission, 1. Eliquis. His last dose was yesterday morning. 2. Lexapro. 3. Pantoprazole. 4. Quetiapine. 5. Spironolactone 50 mg once daily. REVIEW OF SYSTEMS: Negative x10 systems reviewed except as stated in the history of present illness. PHYSICAL EXAMINATION: VITAL SIGNS: Temperature is 97.4; blood pressure 138/95; pulse 86, but has been up to the 120s. GENERAL: He is in no acute distress. He is tremulous diffusely. HEENT: His eyes have mild scleral icterus. Oropharynx is clear without lesions. NECK: No cervical or supraclavicular lymphadenopathy. LUNGS: Clear to auscultation bilaterally. HEART: Tachycardic. S1 and S2. ABDOMEN: Distended with ascites and fairly tense with that. He has mild tenderness diffusely. Bowel sounds are present. EXTREMITIES: No lower extremity edema. NEUROLOGIC: Reveals tremors of his hands and arms bilaterally. LABORATORY DATA: Sodium 130, potassium 4.8, chloride 101, BUN 12, creatinine 0.67, bilirubin 2.3, AST 179, ALT 90, alkaline phosphatase 421, albumin 3.3. IMPRESSION: 1. Decompensated cirrhosis with hypoalbuminemia, hyperbilirubinemia, and ascites. 2. Budd-Chiari syndrome. Imaging from previous hospital stay showed a clot in the right hepatic vein. He has been on Eliquis since then, closer to 7 weeks now. Followup imaging with either ultrasound, Dopplers, or MRI could be performed. 3. Alcoholic cirrhosis. 4. Anxiety and tremulousness. He most likely is having alcohol withdrawal and he is being covered with diazepam scheduled and as needed. 5. Ascites. He is being covered with ceftriaxone empirically due to gastrointestinal bleed and tense ascites. He should undergo a diagnostic tap as well to rule out spontaneous bacterial peritonitis. 6. Gastrointestinal bleed. He presents with hematemesis. Last dose of Eliquis was yesterday morning. We will follow trend of his hemoglobin. In light of the need for anticoagulation and for the ability to reassess for esophageal or gastric varices, endoscopy will be performed tomorrow. His hemoglobin is stable and he is only having small volume bleeding. I would suspect this is Jeannie-Sam or gastritis. His endoscopy was negative for varices back in November of 2019. RECOMMENDATIONS: 1. Ceftriaxone. 2. Add octreotide. 3. EGD tomorrow. 4. Ultrasound with Dopplers of the hepatic veins to reassess the hepatic vein thrombosis and response to anticoagulation. 5. Diagnostic paracentesis to rule out SBP. He might ultimately also require therapeutic paracentesis later in the hospital stay. Job ID: [id number]
[2020-02-17 23:20] LABS: Hemoglobin 12.2 g/dL (14.0-18.0)
[2020-02-18] MEDS: Pantoprazole 80 MG in Sodium Chloride 0.9% 100 ML IVPB SCH ×2 (02:20→20:32)
[2020-02-18] MEDS: Lorazepam 2 MG/ML VIAL SLOW IVP PRN ×3 (02:21→16:16)
[2020-02-18] MEDS ORDERED: Diazepam 5 MG TAB PO PRN (04:00)
[2020-02-18 04:02] LABS: Band 2 % (5-11); Eosinophils 2 % (0-10); Hemoglobin 11.6 g/dL (14.0-18.0); Lymphocytes 23 % (21-51); MDiff Complete? YES; Mean Corpuscular Hemoglobin 31.4 pg (27.0-31.0); Mean Corpuscular Volume 95.1 fL (78.0-98.0); Mean Platelet Volume 7.8 fL (7.4-10.4); Monocytes 15 % (0-10); Neutrophil 57 % (42-75); Platelet Count 145 thou/uL (130-400); Platelet Morphology Comment Appears Adequate; RBC Distribution Width 14.9 % (11.5-14.5); Reactive Lymphocytes 1 % (0-10); Red Blood Cell (RBC) Count 3.68 mill/uL (4.70-6.10); White Blood Cell (WBC) Count 5.4 thou/uL (4.8-10.8)
[2020-02-18 04:23] LABS: Anion Gap 11 mmol/L (10-20); BUN (Urea Nitrogen) 13 mg/dL (8.9-20.6); Calc. Creatinine Clearance 163 mL/min (70-130); Calcium 7.8 mg/dL (7.8-10.44); Carbon Dioxide 20 mmol/L (22-29); Chloride 100 mmol/L (98-107); Estimated GFR-MDRD Greater than 90; Glucose 96 mg/dL (70-105); Potassium 4.4 mmol/L (3.5-5.1); Sodium 127 mmol/L (136-145)
[2020-02-18] MEDS: Morphine 4 MG/ML VIAL SLOW IVP PRN ×4 (05:32→20:28)
[2020-02-18] MEDS: Sodium Chloride 0.9% 1,000 ML IV SCH ×5 (05:33→23:02)
[2020-02-18] MEDS ORDERED: cefTRIAXone Sodium 1 MG in Syringe 0 ML IVPB SCH (06:00)
[2020-02-18] MEDS: cefTRIAXone\\ROCEPHIN 1 GM in Sodium Chloride 0.9% 100 ML IVPB SCH (07:41)
[2020-02-18] MEDS ORDERED: Sodium Bicarbonate 2.5 MEQ/5 ML VIAL ONE (08:27)
[2020-02-18] MEDS ORDERED: Lidocaine 1% PF 5 ML VIAL ONE (08:28)
[2020-02-18] MEDS ORDERED: PROPOFOL 200 MG/20 ML VIAL ONE (09:20)
[2020-02-18 10:16] LABS: RBC Count-Automated (BF) 38136 /cu.mm
[2020-02-18] MEDS ORDERED: Midazolam HCl 2 mg/2 ml Vial ONE (10:57)
[2020-02-18 11:11] LABS: BF Color Red; Body Fluid Source Ascites Body Fluid; Clarity Cloudy/Turbid (Clear); Tube # EDTA
[2020-02-18] MEDS ORDERED: Meperidine HCl/PF 25 MG/ML VIAL SLOW IVP PRN (11:37)
[2020-02-18] MEDS ORDERED: Ondansetron HCl/PF 4 MG/2 ML Vial IVP PRN (11:37)
[2020-02-18] MEDS ORDERED: Promethazine HCl 25 MG/ML VIAL IM PRN (11:37)
[2020-02-18] MEDS ORDERED: HYDROmorphone 2 MG/ML VIAL SLOW IVP PRN (11:37)
[2020-02-18] MEDS ORDERED: Promethazine HCl 25 MG/ML VIAL SLOW IVP PRN (11:37)
--- NOTE | 2020-02-18 11:44 | ULT ---
Sonographic guided paracentesis HISTORY: Symptomatic ascites. FINDINGS: After explaining the procedure and answering all questions, sonographic survey showed a lar ge amount of free fluid throughout the abdomen. Sterile technique, buffered local anesthesia, sonographic guidance, and a right lateral approach were used to carefully advance a 19-gauge Yueh needle and catheter into the free fluid. Catheter was left to drain a total volume of 7.0 L serosanguineous fluid. Catheter was removed with m oderate amount of fluid remaining. Patient tolerated the procedure well and was returned in unchanged condition. A portion of the fluid was sent to laboratory for analysis. IMPRESSION : Technically successful sonographic guided paracentesis. 7.0 L serosanguineous fluid. Moderate amount of fluid remaining
[2020-02-18 12:30] LABS: BF Segmented Neutrophils 3 %; Cell Count Non Hematic 51 %; Lymphocytes 46 %
[2020-02-18] MEDS ORDERED: Albumin 25% 25 GM/100 ML BOT IVPB SCH (12:45)
[2020-02-18 12:54] LABS: WBC/Nucleated-Auto (BF) 536 uL
--- NOTE | 2020-02-18 15:06 | PDOC.HOSPP ---
- Subjective Encounter Date: 02/18/20 Subjective: Patient denies any abdominal pain, nausea, or vomiting today. - Objective Vital Signs & Weight: Vital Signs (12 hours) Temp 02/18/20 07:57 97.7 F 02/18/20 03:47 97.6 F Weight Admit Weight 179 lb Weight 179 lb Most Recent Monitor Data Heart Rate from ECG 82 NIBP 137/104 NIBP BP-Mean 115 Respiration from ECG 24 SpO2 97 I&O: 02/17/20 02/18/20 02/19/20 06:59 06:59 06:59 Intake Total 3850 Output Total 745 Balance 3105 Result Diagrams: 02/18/20 03:44 02/18/20 03:44 Hospitalist ROS - Medication Medications: Active Medications Generic Name Dose Route Start Last Admin Trade Name Freq PRN Reason Stop Dose Admin Pantoprazole Sodium 80 mg/ 100 mls @ 0 mls/hr 02/17/20 06:45 02/18/20 02:20 Sodium Chloride IVPB 100 mls INF DARRION Administration Sodium Chloride 1,000 mls @ 200 mls/hr 02/17/20 09:45 02/18/20 05:33 Normal Saline 0.9% IV 1,000 mls .Q5H DARRION Administration Ceftriaxone Sodium 1 gm/ 100 mls @ 200 mls/hr 02/18/20 06:00 02/18/20 07:41 Sodium Chloride IVPB 100 mls Q24HR DARRION Administration Multivitamins 10 ml/ Folic 1,011.2 mls @ 100 mls/hr 02/17/20 19:00 02/17/20 20:18 Acid 1 mg/ Thiamine HCl 100 mg IV 1,011.2 mls / Dextrose/Sodium Chloride Q24HR DARRION Administration Lorazepam 1 mg 02/17/20 18:44 02/18/20 12:14 Lorazepam 2 Mg/Ml Vial SLOW IVP 1 mg Q4H PRN Administration Anxiety/Agitation Morphine Sulfate 4 mg 02/17/20 09:40 02/18/20 12:13 Morphine 4 Mg/Ml Vial SLOW IVP 4 mg Q4H PRN Administration Moderate to Severe Pain (6-10) Ondansetron HCl 4 mg 02/17/20 09:35 02/17/20 16:50 Ondansetron Pf 4 Mg/2 Ml Vial IVP 4 mg Q6H PRN Administration Nausea/Vomiting Sodium Chloride 10 ml 02/17/20 21:00 02/17/20 20:20 Flush - Normal Saline 10 Ml Syringe IVF 10 ml Q12HR DARRION Administration - Exam General Appearance: awake alert ENT: normocephalic atraumatic Neck: supple, no JVD Heart: RRR, no murmur, no gallops, no rubs, normal peripheral pulses Respiratory: CTAB, no wheezes, no rales, no ronchi, normal chest expansion Extremities: no cyanosis, no clubbing Neurological: cranial nerve grossly intact, no focal deficits Hosp A/P (1) Alcoholic cirrhosis of liver with ascites Code(s): K70.31 - ALCOHOLIC CIRRHOSIS OF LIVER WITH ASCITES Status: Acute (2) GI bleed Code(s): K92.2 - GASTROINTESTINAL HEMORRHAGE, UNSPECIFIED Status: Acute (3) 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 Fluid analysis pending. Continue IV ceftriaxone for SBP prophylaxis and administer 50 g of IV albumin. Status post EGD showing erosive esophagitis with a small varices. No active intervention was performed. Continue PPI. Ultrasound of the liver to assess for the recent hepatic vein thrombus. We can restart Eliquis tomorrow.
--- NOTE | 2020-02-18 15:15 | ULT ---
Hepatic sonogram with duplex evaluation HISTORY: Budd-Chiari disease. Hepatic vein thrombosis. Follow-up. COMPARISON: MRI abdomen 12/19/2019. FINDINGS: Gallbladder is surgically absent. Common duct obscured by bowel gas. No intrahepatic biliar y dilatation evident. Liver remains prominent, heterogeneous, and hyperechoic. No focal mass evident. Free fluid seen withi n the abdomen. The spleen is 15.6 cm length without focal abnormality. Good color and spectral Doppler flow within the hepatic and splenic arteries. Portal venous flow is t owards the liver. IVC is patent. No internal thrombus visible sonographically. Right hepatic vein not well visualized. Other visualized hepatic veins are patent without thrombus apparent. IMPRESSION : The small area of hepatic vein thrombus from the prior MRI is not well demonstrated on the sonogram, although sonogram is less sensitive in this case. There certainly has been no propagation of hepatic vein thrombus. Appropriate directional portal venous flow. Status post cholecystectomy. No evidence of biliary obstruction. Hepato-steatosis. Moderate splenomegaly likely related to portal venous hypertension. Ascites
--- NOTE | 2020-02-18 16:25 | OP ---
DATE OF PROCEDURE: 02/18/2020 [employer] SURGEON: None. PROCEDURE: Esophagogastroduodenoscopy, diagnostic. INDICATION: 1. Hematemesis. 2. Cirrhosis with ascites. 3. Hepatic vein thrombus with Budd-Chiari syndrome, on Eliquis. Eliquis has been held for 2 days. MEDICATIONS: See Anesthesia record. FINDINGS: After discussion of the risks, benefits, and alternatives of the procedure, informed consent was obtained and witnessed. Pre-endoscopic cardiopulmonary examination was satisfactory. Time-out was performed before sedation was achieved. Sedation was achieved with Anesthesia assistance in the endoscopy unit. A Pentax adult upper endoscope was placed into the oropharynx and passed through the cricopharyngeus under direct visualization. The proximal and mid esophageal mucosa appears normal. In the distal esophagus, there are a few scattered linear erosions and a smaller shallow ulceration at the GE junction, all consistent with erosive reflux of esophagitis. There are also three trunks of tiny grade 1 distal esophageal varices, but these flattened out completely with air insufflation and there are no stigmata of bleeding. The endoscope was advanced into the stomach. Forward and retroflexed views of the entire gastric mucosa were obtained. There is some mild diffuse portal hypertensive gastropathy, but no evidence of any old blood, active bleeding or bleeding lesions in the stomach. No evidence of gastric varices. The endoscope was advanced through the pylorus and into the first and second portions of the duodenum, which appeared normal. The upper endoscope was completely withdrawn and the patient allowed to recover. The patient tolerated the procedure well. There were no immediate postprocedure complications. IMPRESSION: 1. No old blood or active bleeding on this examination. 2. Distal erosive reflux esophagitis. 3. Mild portal hypertensive gastropathy. 4. Three trunks of small grade 1 esophageal varices with no stigmata of bleeding, flattening out completely with air insufflation. RECOMMENDATIONS: 1. Continue IV pantoprazole, can switch to 40 mg IV twice daily while inpatient. Upon hospital discharge, switch to 40 mg twice daily dosing. 2. Octreotide can be discontinued. 3. Eliquis can be resumed. 4. Low-sodium diet. 5. The patient needs to completely avoid alcohol going forward. 6. Awaiting paracentesis fluid studies. 7. Obtain ultrasound with Dopplers to re-evaluate hepatic vein thrombosis. Job ID: [id number]
[2020-02-18] MEDS: Multivitamins, Adult 10 ML, Folic Acid 1 MG, Thiamine HCl 100 MG in Dextrose 5 %-0.45 %... IV SCH (20:32)
[2020-02-19] MEDS: Morphine 4 MG/ML VIAL SLOW IVP PRN ×4 (00:49→18:48)
[2020-02-19] MEDS: Lorazepam 2 MG/ML VIAL SLOW IVP PRN ×4 (00:52→20:03)
[2020-02-19] MEDS: Sodium Chloride 0.9% 1,000 ML IV SCH ×5 (03:16→20:05)
[2020-02-19] MEDS: cefTRIAXone\\ROCEPHIN 1 GM in Sodium Chloride 0.9% 100 ML IVPB SCH (05:41)
[2020-02-19] MEDS: Pantoprazole 80 MG in Sodium Chloride 0.9% 100 ML IVPB SCH ×2 (06:46→17:30)
--- NOTE | 2020-02-19 09:28 | PRG ---
DATE OF SERVICE: 02/19/2020 SUBJECTIVE: The patient had uneventful last night without any signs of bleeding. He has insomnia. He reports having some upper abdominal pain, but overall feels much better after the paracentesis. He is tolerating regular diet well. OBJECTIVE: VITAL SIGNS: Temperature is 97.4, blood pressure 102/77, pulse of 84. GENERAL: He is alert, conversant, lucid and oriented. HEENT: Shows mildly icteric sclerae. Oropharynx is clear. CV: Shows normal S1 and S2. Regular rate and rhythm. CHEST: Shows breath sounds. ABDOMEN: Mildly protuberant, but soft. No distention. No tympany. He has active bowel sounds. No tenderness. EXTREMITIES: Shows very trace edema. LABORATORY DATA: No labs available from this morning yet. Fluid analysis apparent. No fluid showed. WBCs 536, RBC 38,136. Peritoneal fluid culture negative at 24 hours. ASSESSMENT: 1. Status post upper gastrointestinal bleed, upper endoscopy yesterday showed grade 1 varices without any signs of active bleeding along with portal hypertensive gastropathy. The patient is off octreotide. 2. Budd-Chiari syndrome/hepatic vein thrombosis, Eliquis is on hold at the present. 3. Alcoholic cirrhosis. 4. Portal hypertension with ascites, status post 7 L fluid removed by paracentesis two days ago. No evidence of SBP. RECOMMENDATION: 1. Restart Eliquis 5 mg p.o. b.i.d. for his hepatic vein thrombosis given negative ECG for any active bleed. 2. Start nadolol 20 mg p.o. daily. 3. We will start on diuretics, furosemide 40 mg and Aldactone 100 mg daily for fluid/ascites control. 4. The patient is stable to go to floor and hopefully can be discharged tomorrow if continues to be stable without evidence of recurrent bleeding. Job ID: [id number]
[2020-02-19] MEDS: Nadolol 40 MG TAB PO SCH (10:28)
--- NOTE | 2020-02-19 17:27 | PDOC.HOSPP ---
- Subjective Encounter Date: 02/19/20 Subjective: No further episodes of bleeding. - Objective Vital Signs & Weight: Vital Signs (12 hours) Temp BP Pulse Ox 02/19/20 11:54 98 02/19/20 11:50 124/82 02/19/20 08:00 98 02/19/20 07:00 97.4 F L Weight Admit Weight 179 lb Weight 179 lb Most Recent Monitor Data Heart Rate from ECG 84 NIBP 102/77 NIBP BP-Mean 85 Respiration from ECG 22 SpO2 96 I&O: 02/18/20 02/19/20 02/20/20 06:59 06:59 06:59 Intake Total 3850 2550 Output Total 745 900 Balance 3105 1650 Result Diagrams: 02/18/20 03:44 02/18/20 03:44 Hospitalist ROS - Medication Medications: Active Medications Generic Name Dose Route Start Last Admin Trade Name Freq PRN Reason Stop Dose Admin Diazepam 5 mg 02/18/20 04:00 02/18/20 20:29 Diazepam 5 Mg Tab PO 5 mg Q4H PRN Administration FOR ASE 10 OR GREATER Pantoprazole Sodium 80 mg/ 100 mls @ 0 mls/hr 02/17/20 06:45 02/19/20 06:46 Sodium Chloride IVPB 100 mls INF DARRION Administration Sodium Chloride 1,000 mls @ 200 mls/hr 02/17/20 09:45 02/19/20 10:28 Normal Saline 0.9% IV 1,000 mls .Q5H DARRION Administration Ceftriaxone Sodium 1 gm/ 100 mls @ 200 mls/hr 02/18/20 06:00 02/19/20 05:41 Sodium Chloride IVPB 100 mls Q24HR DARRION Administration Multivitamins 10 ml/ Folic 1,011.2 mls @ 100 mls/hr 02/17/20 19:00 02/18/20 20:32 Acid 1 mg/ Thiamine HCl 100 mg IV 1,011.2 mls / Dextrose/Sodium Chloride Q24HR DARRION Administration Lorazepam 1 mg 02/17/20 18:44 02/19/20 14:29 Lorazepam 2 Mg/Ml Vial SLOW IVP 1 mg Q4H PRN Administration Anxiety/Agitation Morphine Sulfate 4 mg 02/17/20 09:40 02/19/20 13:09 Morphine 4 Mg/Ml Vial SLOW IVP 4 mg Q4H PRN Administration Moderate to Severe Pain (6-10) Nadolol 40 mg 02/19/20 09:00 02/19/20 10:28 Nadolol 40 Mg Tab PO 40 mg DAILY DARRION Administration Ondansetron HCl 4 mg 02/17/20 09:35 02/17/20 16:50 Ondansetron Pf 4 Mg/2 Ml Vial IVP 4 mg Q6H PRN Administration Nausea/Vomiting Sodium Chloride 10 ml 02/17/20 21:00 02/19/20 07:56 Flush - Normal Saline 10 Ml Syringe IVF Not Given Q12HR DARRION - Exam General Appearance: awake alert ENT: normocephalic atraumatic Neck: supple, no JVD Heart: RRR Respiratory: normal chest expansion, no tachypnea Gastrointestinal: soft, non-tender, non-distended Neurological: cranial nerve grossly intact, no focal deficits Hosp A/P (1) Alcoholic cirrhosis of liver with ascites Code(s): K70.31 - ALCOHOLIC CIRRHOSIS OF LIVER WITH ASCITES Status: Acute (2) GI bleed Code(s): K92.2 - GASTROINTESTINAL HEMORRHAGE, UNSPECIFIED Status: Acute (3) Hepatic vein thrombosis Code(s): I82.0 - BUDD-CHIARI SYNDROME Status: Acute (4) Renal mass Code(s): N28.89 - OTHER SPECIFIED DISORDERS OF KIDNEY AND URETER Status: Acute - Plan Status post thoracentesis with removal of 7 L of fluids. Fluid analysis pending. Continue IV ceftriaxone for SBP prophylaxis and administer 50 g of IV albumin. Status post EGD showing small varices. No active intervention was performed. Continue PPI. Eliquis restarted. If no further bleeding by tomorrow, we will discharge him.
[2020-02-19] MEDS: Multivitamins, Adult 10 ML, Folic Acid 1 MG, Thiamine HCl 100 MG in Dextrose 5 %-0.45 %... IV SCH (20:00)
[2020-02-20] MEDS: Melatonin 3 MG TAB PO PRN ×2 (00:10→23:24)
[2020-02-20] MEDS: Sodium Chloride 0.9% 1,000 ML IV SCH ×4 (02:45→19:55)
[2020-02-20] MEDS: cefTRIAXone\\ROCEPHIN 1 GM in Sodium Chloride 0.9% 100 ML IVPB SCH (06:05)
[2020-02-20 06:21] LABS: Band 3 % (5-11); Hemoglobin 11.2 g/dL (14.0-18.0); Lymphocytes 26 % (21-51); MDiff Complete? YES; Mean Corpuscular HGB CONC 31.3 g/dL (32.0-36.0); Mean Corpuscular Hemoglobin 30.3 pg (27.0-31.0); Mean Corpuscular Volume 96.8 fL (78.0-98.0); Mean Platelet Volume 8.5 fL (7.4-10.4); Monocytes 16 % (0-10); Neutrophil 55 % (42-75); Platelet Count 159 thou/uL (130-400); Platelet Morphology Comment Appears Adequate; RBC Distribution Width 14.8 % (11.5-14.5); Red Blood Cell (RBC) Count 3.71 mill/uL (4.70-6.10); White Blood Cell (WBC) Count 4.9 thou/uL (4.8-10.8)
[2020-02-20 06:34] LABS: Anion Gap 11 mmol/L (10-20); BUN (Urea Nitrogen) 6 mg/dL (8.9-20.6); Calc. Creatinine Clearance 194 mL/min (70-130); Calcium 7.5 mg/dL (7.8-10.44); Carbon Dioxide 23 mmol/L (22-29); Chloride 105 mmol/L (98-107); Estimated GFR-MDRD Greater than 90; Glucose 104 mg/dL (70-105); Potassium 3.7 mmol/L (3.5-5.1); Sodium 135 mmol/L (136-145)
[2020-02-20] MEDS: Nadolol 40 MG TAB PO SCH (09:32)
[2020-02-20] MEDS: Furosemide 40 MG TAB PO SCH (09:32)
[2020-02-20] MEDS: Spironolactone 100 MG TAB PO SCH (09:33)
[2020-02-20] MEDS: Ondansetron PF 4 MG/2 ML Vial IVP PRN (13:58)
[2020-02-20] MEDS: Morphine 4 MG/ML VIAL SLOW IVP PRN ×3 (13:58→23:25)
[2020-02-20] MEDS ORDERED: Scopolamine 1.5 mg/72 hour Patch TD SCH (15:00)
[2020-02-20] MEDS: Lorazepam 2 MG/ML VIAL SLOW IVP PRN ×2 (16:46→21:53)
[2020-02-20] MEDS ORDERED: Albumin 25% 25 GM/100 ML BOT IVPB SCH (19:45)
[2020-02-20] MEDS: Multivitamins, Adult 10 ML, Folic Acid 1 MG, Thiamine HCl 100 MG in Dextrose 5 %-0.45 %... IV SCH ×2 (20:24→21:53)
--- NOTE | 2020-02-20 23:11 | PRG ---
DATE OF SERVICE: 02/20/2020 SUBJECTIVE: Mr. Johnson complains of anxiety, trouble sleeping, and leakage of ascitic fluid from his paracentesis site. He has had no nausea or vomiting. Some vague abdominal pain. PHYSICAL EXAMINATION: VITAL SIGNS: Temperature 98.0, pulse 71, blood pressure 102/61. GENERAL: He is in no acute distress. LUNGS: Clear to auscultation bilaterally. HEART: Regular rate and rhythm without murmur. ABDOMEN: Distended with ascites, but still fairly soft, which he states it is actually softer after having drained more of the fluid from the paracentesis site. EXTREMITIES: No lower extremity edema. LABORATORY DATA: White blood cell count 4.9, hemoglobin 11.2, platelets 159, creatinine 0.58. IMPRESSION: 1. Alcoholic cirrhosis. States his last drink was a month ago. However, he seems to have some degree of alcohol withdrawal. He is being covered with benzodiazepines for that. 2. Hematemesis. Upper endoscopy shows erosive esophagitis is a likely source for that. From a bleeding standpoint, he can likely restart his anticoagulation. 3. Hepatic vein thrombosis Budd-Chiari syndrome. I think would be helpful to re-image his hepatic veins with either MRI or Doppler ultrasound around 3 months after having started anticoagulation. Meantime, we can just restart his Eliquis. 4. Ascites with persistently draining fluid from the last paracentesis site. Given the ongoing drainage and abdominal distention with fluid would be reasonable to perform a paracentesis tomorrow to try to get additional fluid off to reduce the pressures so that the paracentesis site can heal. Following that, he should restart his anticoagulation and he could likely then discharge home. Job ID: [id number]
[2020-02-21] MEDS: cefTRIAXone\\ROCEPHIN 1 GM in Sodium Chloride 0.9% 100 ML IVPB SCH (05:26)
[2020-02-21] MEDS: Lorazepam 2 MG/ML VIAL SLOW IVP PRN ×4 (05:28→19:45)
[2020-02-21] MEDS: Morphine 4 MG/ML VIAL SLOW IVP PRN ×4 (06:22→18:33)
[2020-02-21] MEDS: Spironolactone 100 MG TAB PO SCH (08:45)
[2020-02-21] MEDS: Furosemide 40 MG TAB PO SCH ×2 (08:45→10:11)
[2020-02-21] MEDS ORDERED: Sodium Bicarbonate 2.5 MEQ/5 ML VIAL ONE (08:46)
[2020-02-21] MEDS ORDERED: Lidocaine 1% PF 5 ML VIAL ONE (08:46)
[2020-02-21] MEDS: Nadolol 40 MG TAB PO SCH (08:46)
--- NOTE | 2020-02-21 10:31 | ULT ---
Paracentesis sonographic guided HISTORY: Symptomatic ascites. FINDINGS: After explaining the procedure and answering all questions, sonographic survey of the abdom en showed a large amount of free fluid. Sterile technique, buffered local anesthesia, sonographic guidance, and a right lateral approach were used to carefully advance a 19-gauge Yueh needle and catheter into the free fluid. Catheter was left to drain a total volume of 5.0 L serosanguineous fluid. Catheter was removed with minimal fluid remaining. Patient tolerated the procedure well and was retur crispin in improved condition. IMPRESSION : Successful sonographic guided paracentesis. 5.0 L.
[2020-02-21 10:54] LABS: RBC Count-Automated (BF) 15440 /cu.mm; WBC/Nucleated-Auto (BF) 459 uL
[2020-02-21 10:55] LABS: BF Color Pink; Body Fluid Source Ascites Body Fluid; Clarity Hazy (Clear); Tube # EDTA
[2020-02-21 11:23] LABS: BF Segmented Neutrophils 2 %
[2020-02-21 11:24] LABS: Cell Count Non Hematic 55 %; Lymphocytes 43 %
[2020-02-21] MEDS ORDERED: Albumin 25% 25 GM/100 ML BOT IVPB SCH (11:56)
--- NOTE | 2020-02-21 12:47 | PDOC.HOSPP ---
- Subjective Encounter Date: 02/21/20 Subjective: Patient had persistent drainage of ascitic fluid through his paracentesis site yesterday. He underwent another paracentesis today. - Objective Vital Signs & Weight: Vital Signs (12 hours) Temp Pulse Resp BP BP BP Pulse Ox 02/21/20 10:44 99.3 F 76 18 93/60 97 02/21/20 10:10 107/73 02/21/20 08:45 98/65 98/65 02/21/20 07:09 97.8 F 86 18 90/59 L 97 02/21/20 04:15 97.8 F 67 16 114/74 97 Weight Admit Weight 179 lb Weight 179 lb Most Recent Monitor Data Heart Rate from ECG 84 NIBP 102/77 NIBP BP-Mean 85 Respiration from ECG 22 SpO2 96 I&O: 02/20/20 02/21/20 02/22/20 06:59 06:59 06:59 Intake Total 3500 2720 Output Total 2070 Balance 1430 2720 Result Diagrams: 02/20/20 05:37 02/20/20 05:37 Hospitalist ROS - Medication Medications: Active Medications Generic Name Dose Route Start Last Admin Trade Name Freq PRN Reason Stop Dose Admin Albumin Human 25 gm 02/21/20 11:56 02/21/20 12:17 Albumin 25% 25 Gm/100 Ml Bot IVPB 02/21/20 16:00 25 gm NOW DARRION Administration Diazepam 5 mg 02/18/20 04:00 02/18/20 20:29 Diazepam 5 Mg Tab PO 5 mg Q4H PRN Administration FOR ASE 10 OR GREATER Furosemide 40 mg 02/20/20 07:30 02/21/20 10:11 Furosemide 40 Mg Tab PO 40 mg DAILY-AC DARRION Administration Ceftriaxone Sodium 1 gm/ 100 mls @ 200 mls/hr 02/18/20 06:00 02/21/20 05:26 Sodium Chloride IVPB 100 mls Q24HR DARRION Administration Multivitamins 10 ml/ Folic 1,011.2 mls @ 100 mls/hr 02/20/20 22:00 02/20/20 21:53 Acid 1 mg/ Thiamine HCl 100 mg IV 1,011.2 mls / Dextrose/Sodium Chloride 2200 DARRION Administration Lorazepam 1 mg 02/17/20 18:44 02/21/20 11:15 Lorazepam 2 Mg/Ml Vial SLOW IVP 1 mg Q4H PRN Administration Anxiety/Agitation Melatonin 3 mg 02/19/20 23:56 02/20/20 23:24 Melatonin 3 Mg Tab PO 3 mg HS PRN Administration Insomnia Morphine Sulfate 4 mg 02/17/20 09:40 02/21/20 10:13 Morphine 4 Mg/Ml Vial SLOW IVP 4 mg Q4H PRN Administration Moderate to Severe Pain (6-10) Nadolol 40 mg 02/19/20 09:00 02/21/20 08:46 Nadolol 40 Mg Tab PO Not Given DAILY DARRION Ondansetron HCl 4 mg 02/17/20 09:35 02/20/20 13:58 Ondansetron Pf 4 Mg/2 Ml Vial IVP 4 mg Q6H PRN Administration Nausea/Vomiting Pantoprazole Sodium 40 mg 02/20/20 21:00 02/21/20 08:45 Pantoprazole 40 Mg Tab PO 40 mg BID DARRION Administration Scopolamine 1.5 mg 02/20/20 15:00 02/20/20 16:45 Scopolamine 1.5 Mg/72 Hour Patch TD Not Given Q3D DARRION Sodium Chloride 10 ml 02/17/20 21:00 02/21/20 08:45 Flush - Normal Saline 10 Ml Syringe IVF 10 ml Q12HR DARRION Administration Spironolactone 100 mg 02/20/20 08:00 02/21/20 08:45 Spironolactone 100 Mg Tab PO Not Given QAM-WM DARRION - Exam General Appearance: awake alert ENT: normocephalic atraumatic Neck: supple, no JVD Respiratory: normal chest expansion, no tachypnea Skin: normal turgor, no lesions Neurological: cranial nerve grossly intact, no new deficit Hosp A/P (1) Alcoholic cirrhosis of liver with ascites Code(s): K70.31 - ALCOHOLIC CIRRHOSIS OF LIVER WITH ASCITES Status: Acute (2) GI bleed Code(s): K92.2 - GASTROINTESTINAL HEMORRHAGE, UNSPECIFIED Status: Acute (3) Hepatic vein thrombosis Code(s): 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 Fluid analysis did not reveal any findings suggestive of SBP. We will administer another dose of albumin today. He continues to have oozing through his paracentesis site. Pressure dressing was applied. We will continue to monitor the patient over the next 34 hours. Status post EGD showing small varices. No active intervention was performed. Continue PPI. Continue ceftriaxone until discharge. Hepatic vein thrombosis. Ultrasound of the abdomen revealed no evidence of worsening thrombus in the hepatic veins. Eliquis can be restarted on discharge.
[2020-02-21] MEDS: Apixaban 5 MG TAB PO SCH (19:56)
--- NOTE | 2020-02-21 20:12 | PRG ---
DATE OF SERVICE: 02/21/2020 SUBJECTIVE: Mr. Johnson complained of leakage of ascites from his paracentesis site this morning. He is awake and alert. Appears more comfortable in general. OBJECTIVE: VITAL SIGNS: Temperature 97.5, pulse 66, blood pressure 104/70. GENERAL: He is in no acute distress. Alert and oriented x3. NEUROLOGICAL: He has no asterixis on neurological exam. LUNGS: Clear to auscultation bilaterally. HEART: Regular rate and rhythm without murmur. ABDOMEN: Soft. It is distended with ascites mildly, but still not tense like when he was admitted. His bowel sounds are present. EXTREMITIES: No lower extremity edema. LABORATORY DATA: White blood cell count 4.9, hemoglobin 11.2, platelets 159. INR 1.1. Creatinine 0.58. IMPRESSION: 1. Alcoholic cirrhosis. He has decompensated with symptomatic ascites. He has also had some encephalopathy, which is currently resolved. 2. Hematemesis. This appeared to be primarily secondary to erosive esophagitis. He will need to remain on proton pump inhibitor. He should be able to restart his anticoagulation from this standpoint. 3. Hepatic vein thrombosis. Restart anticoagulation. I would plan to re-image his hepatic veins in a couple of months, which will be 3 months out from having started anticoagulation. 4. Ascites. He has persistently draining fluid from his paracentesis site, so we repeated paracentesis with 5 L removed today in spite removing MAP pressure, he still has drainage from his paracentesis site. He will just have to keep this dressed and eventually this should stop on its own. RECOMMENDATIONS: 1. Maintain alcohol abstinence. 2. Low-salt diet. 3. Pantoprazole 40 mg twice daily. 4. Furosemide 40 mg daily and spironolactone 100 mg daily. 5. He is on propranolol; however, he only had grade 1 varices without signs of high-risk stigmata associated with this varices. I do not see that he really needs to be on long-term beta robert currently from a liver standpoint, but if he needs this for blood pressure control or other reason, it is fine. 6. Restart Eliquis. 7. He should be able to stop his ceftriaxone tomorrow and likely can discharge home tomorrow. Job ID: [id number]
[2020-02-21] MEDS ORDERED: Melatonin 3 MG TAB PO PRN (22:07)
[2020-02-21] MEDS: Morphine 2 MG/ML VIAL SLOW IVP PRN (22:25)
[2020-02-21] MEDS: Multivitamins, Adult 10 ML, Folic Acid 1 MG, Thiamine HCl 100 MG in Dextrose 5 %-0.45 %... IV SCH (22:26)
[2020-02-22] MEDS: Lorazepam 2 MG/ML VIAL SLOW IVP PRN ×3 (00:11→10:03)
[2020-02-22] MEDS: Morphine 2 MG/ML VIAL SLOW IVP PRN ×3 (03:02→12:12)
[2020-02-22] MEDS: cefTRIAXone\\ROCEPHIN 1 GM in Sodium Chloride 0.9% 100 ML IVPB SCH (05:03)
[2020-02-22 07:43] VITALS: TEMP 97.7
[2020-02-22] MEDS: Apixaban 5 MG TAB PO SCH (08:12)
[2020-02-22] MEDS: Furosemide 40 MG TAB PO SCH (08:12)
[2020-02-22] MEDS: Nadolol 40 MG TAB PO SCH (08:12)
[2020-02-22] MEDS: Spironolactone 100 MG TAB PO SCH (08:13)
[2020-02-22 12:44] VITALS: BP 106/74
--- NOTE | 2020-02-22 12:47 | PRG ---
DATE OF SERVICE: 02/22/2020 SUBJECTIVE: Mr. Johnson still has some leakage of ascitic fluid from the paracentesis site. He has no other complaints currently. Noted to have some orthostatic symptoms this morning. OBJECTIVE: VITAL SIGNS: Temperature 97.7, pulse 77, and blood pressure 104/67. GENERAL: He is in no acute distress. Alert and oriented x3. LUNGS: Clear to auscultation bilaterally. HEART: Regular rate and rhythm without murmur. ABDOMEN: Soft, mildly distended. Bowel sounds are active. EXTREMITIES: 1+ lower extremity edema. LABORATORY DATA: White blood cell count 4.9, hemoglobin 11.2, and platelets 159. IMPRESSION: 1. Alcoholic cirrhosis. He was decompensated with ascites. 2. Ascites, status post paracentesis. He will need to continue a low-salt diet. He can continue with his diuretics scheduled. 3. Hepatic vein thrombosis. He was restarted on Eliquis last night. 4. Hematemesis secondary to erosive esophagitis. He will need to remain on proton pump inhibitor. He only had small grade 1 varices without signs of high-risk stigmata related to those and given his orthostatic symptoms, he can likely stop his beta robert at this point. RECOMMENDATIONS: 1. Continue Eliquis. 2. Low-salt diet. 3. Furosemide and spironolactone. 4. Pantoprazole twice daily. 5. We can wean the propranolol down to 20 mg and we can stop it in the office. 6. Anticipate discharge home today, and he can follow up in GI Clinic in a couple of weeks. Job ID: [id number]
--- NOTE | 2020-02-24 07:36 | DIS ---
DATE OF ADMISSION: 02/17/2020 DATE OF DISCHARGE: 02/22/2020 DISCHARGE DIAGNOSES: 1. Hematemesis. 2. Ascites. 3. Alcoholic liver cirrhosis. 4. Hepatic vein thrombosis. 5. Renal mass. DISCHARGE MEDICATIONS: 1. Spironolactone 100 mg orally daily. 2. Furosemide 40 mg orally daily. 3. Pantoprazole 40 mg orally twice daily. 4. Seroquel 50 mg orally nightly. 5. Citalopram 10 mg orally daily. 6. Eliquis 5 mg orally twice daily. 7. Nadolol 40 mg orally daily. HISTORY OF PRESENT ILLNESS AND HOSPITAL COURSE: The patient is a 39-year-old male with past medical history of alcoholic liver cirrhosis, who presented to the hospital with multiple episodes of nausea and vomiting of dark red blood. The patient was admitted to the hospital and was managed initially with IV fluids. Type and screen was performed, but the patient did not require any transfusion as his hemoglobin level dropped from 14.9 on admission to 11.2 on the day of discharge, not requiring transfusion. Abdominal distention was noted and the patient underwent successful ultrasound-guided paracentesis with removal of 7 L of fluids. The patient received albumin replacement afterwards. GI consulted and the patient underwent an EGD, which showed no evidence of old or active bleeding, distal erosive reflux esophagitis, mild portal hypertensive gastropathy, and 3 trunks of small grade 1 varices with no stigmata of bleeding. GI recommended continuing PPI and cleared the patient to restart Eliquis. Job ID: [id number]
--- NOTE | 2020-02-24 09:26 | DIS ---
DATE OF ADMISSION: 02/17/2020 DATE OF DISCHARGE: 02/22/2020 DISCHARGE DIAGNOSES: 1. Hematemesis, possibly secondary to erosive esophagitis. 2. Recurrent ascites secondary to decompensated alcoholic cirrhosis. 3. History of hepatic vein thrombosis. 4. Anemia. 5. Hyponatremia. 6. Lactic acidosis. BRIEF HISTORY OF PRESENT ILLNESS: This is a 39-year-old male with past medical history of alcoholic cirrhosis, presented to the emergency room with recurrent abdominal distention and hematemesis that occurred 5 times. He also reported abdominal pain and nausea. When he presented to the hospital, chest x-ray was unremarkable. He had significant ascites on eoxam so was admitted for further workup Hospital Course: #Decompensated Cirrhosis with Ascites #Hematemesis with erosive esophagitis #Hepatic Vein Thrombosis: Abdominal ultrasound showed hepatic vein thrombus, splenomegaly, and hepatic steatosis. The patient underwent paracentesis with 7 L of serosanguinous fluid drained. Fluid white blood cells were 536, with 3 percent neutrophils. He did have 38,136 RBCs. The patient was started on ceftriaxone empirically. He continued to have persistent leaking from the paracentesis site. Repeat paracentesis was performed on 02/20 with 5 L of fluid serosanguinous drained. Again, there was no evidence of SBP with fluid, white blood cells 459 and neutrophils 2%. He completed 5 days of IV ceftriaxone while in the hospital. He did undergo an upper endoscopy with Dr. Stewart on 02/17, which showed distal erosive reflux esophagitis, portal hypertensive gastropathy, and grade 1 esophageal varices. The patient denies any abdominal pain, nausea, or vomiting. He continues to endorse some leaking from the site. However, GI states that this will be there for few days. His blood pressures were on the lower side ranging from 90s to 100 systolic. His Lasix dose was reduced to 20 mg daily and spironolactone dose reduced to 50 mg daily. Orthostatic hypotension: the patient had low blood pressures of 90 to 100 systolic while in the hospital. Orthostatics were positive with BP 115 sitting to 95 systolic standing with mild dizziness while standing. He will be given a prescription for midodrine three times daily as needed for orthostatic hypotension. The patient was taking nadolol 40 mg and his dose will be reduced to 20 mg if he is able to tolerate it. Per GI, the patient may not even need nadolol prophylaxis if he does not tolerate this from low blood pressure. DISCHARGE PHYSICAL EXAMINATION: VITAL SIGNS: Temperature 97.7, heart rate 77, respiratory rate 20, O2 saturation 96% on room air, blood pressure 104/67. GENERAL: The patient is alert, awake, and oriented x3. CVS: Regular rate and rhythm with no murmurs, rubs, or gallops. LUNGS: Clear to auscultation bilaterally. ABDOMEN: Positive bowel sounds, soft, mild distention. Nontender. EXTREMITIES: No edema. PERTINENT LABORATORY DATA: CBC on 02/19: White count 4.9, hemoglobin 11.2, hematocrit 35.9, platelet count 159. BMP on 02/19: Sodium 135. Rest of BMP unremarkable. Lactic acid: 4.1, 3.6, 2.1 on 02/16. LFTs on 02/16: AST 139, ALT 90, alkaline phosphatase 421. IMAGING: Chest x-ray on 02/16: No acute disease. Hepatic Doppler ultrasound on 02/17: Shows small area of hepatic vein thrombus. Status post cholecystectomy. Hepatic steatosis. Moderate splenomegaly, likely secondary to portal venous hypertension. DISCHARGE MEDICATIONS: 1. Lasix 20 mg p.o. daily. 2. Midodrine 5 mg p.o. t.i.d. p.r.n. 3. Nadolol 20 mg p.o. daily. 4. Spironolactone 50 mg p.o. daily. 5. Eliquis 5 mg p.o. b.i.d. 6. Seroquel 50 mg p.o. at bedtime. 7. Lexapro 10 mg p.o. daily. 8. Protonix 40 mg p.o. b.i.d. DISCHARGE DIET: Heart healthy, low protein, 2 gram sodium diet with 2L fluid restriction DISCHARGE INSTRUCTIONS: The patient should follow up with his PCP in a week and GI doctor in 2 weeks. Please repeat CBC in a week and LFTs in a week. Come back to the hospital if he has persistent leaking, recurrent ascites, recurrent hematemesis. Job ID: [id number] [email or web address]
== END 2020-02-22 12:40 | disposition home or self-care (01) | DRG 368 ==
LOC: ERS 05:44 → ERHOLD 08:27 → IMCU/EMU 12:11 → T4-B 02-19 11:24
PROVIDERS: ADMIT Family Medicine; ATTEND Family Medicine
PROC: 0W9G3ZZ Drainage of Peritoneal Cavity, Percutaneous Approach (ICD-10-PCS; principal; 2020-02-18)
PROC: 0DJ08ZZ Inspection of Upper Intestinal Tract, Via Natural or Artificial Opening Endoscopic (ICD-10-PCS; 2020-02-18)
PROC: 0W9G3ZZ Drainage of Peritoneal Cavity, Percutaneous Approach (ICD-10-PCS; 2020-02-21)
DX: K21.01 Gastro-esophageal reflux disease with esophagitis, with bleeding (principal); I82.0 Budd-Chiari syndrome; I81 Portal vein thrombosis; E87.1 Hypo-osmolality and hyponatremia; E87.2 Acidosis; K76.6 Portal hypertension; I85.10 Secondary esophageal varices without bleeding; F10.239 Alcohol dependence with withdrawal, unspecified; K70.31 Alcoholic cirrhosis of liver with ascites; K31.89 Other diseases of stomach and duodenum; Z20.828 Contact with and (suspected) exposure to other viral communicable diseases; F31.9 Bipolar disorder, unspecified; F17.210 Nicotine dependence, cigarettes, uncomplicated; E86.1 Hypovolemia; E86.0 Dehydration; R25.1 Tremor, unspecified; K76.0 Fatty (change of) liver, not elsewhere classified; N28.89 Other specified disorders of kidney and ureter; Y90.0 Blood alcohol level of less than 20 mg/100 ml; Z79.899 Other long term (current) drug therapy; Z79.01 Long term (current) use of anticoagulants; Z90.49 Acquired absence of other specified parts of digestive tract
CPT/HCPCS: 36415; 49083; 71045; 76705; 80048; 80053; 80306; 80307; 83605; 85025; 85060; 85610; 85730; 86850; 86900; 86901; 87070; 87205; 87635; 89051; 93005; 96365; 96366; 96367; 96374; 96375; 96376; C9113; J0696; J2060; J2250; J2270; J2354; J2405; J2704; J3411; J3490; J7042; J7050; P9047; U0003

== ENCOUNTER 2020-04-03 12:45 | Day surgery (SDC) | payer BC ==
[2020-04-03] MEDS ORDERED: Sodium Bicarbonate 2.5 MEQ/5 ML VIAL ONE ×2 (12:46)
[2020-04-03] MEDS ORDERED: Lidocaine 1% PF 5 ML VIAL ONE ×2 (12:46)
[2020-04-03] MEDS ORDERED: Albumin 25% 100 ML ONE (13:07)
[2020-04-03 14:34] VITALS: BMI 23.0
[2020-04-03 14:35] VITALS: BP 141/97; TEMP 98.6
--- NOTE | 2020-04-03 16:22 | ULT ---
ULTRASOUND-GUIDED PARACENTESIS THERAPEUTIC: DATE: 04/03/2020 HISTORY: 39-year-old male with symptomatic ascites: Abdominal distention, due to alcoholic cirrhosis TECHNIQUE: Signed informed consent obtained. A four-quadrant survey of abdomen performed. Site selected for puncture: right lower quadrant Overlying skin prepared and draped in usual sterile fashion. 25-gauge needle used to apply buffered lidocaine superficially and deeply. 5 [place] Yueh catheter with stylette advanced into the pocket of free intraperitoneal fluid. After drainage, the Yueh catheter was removed. Patient tolerated the procedure well. No complications. FINDINGS: Volume of ascites prior to procedure:large. Volume of ascites fluid drained:7000 mL Appearance of ascites fluid:nonhemorrhagic, straw-colored. IMPRESSION: Successful therapeutic paracentesis, with drainage of 7 L of ascites fluid.
== END 2020-04-03 14:23 | disposition home or self-care (01) ==
LOC: ULT 12:45
PROVIDERS: ATTEND Physician Assistant Medical
PROC: 0W9G3ZZ Drainage of Peritoneal Cavity, Percutaneous Approach (ICD-10-PCS; principal; 2020-04-03)
PROC: BW40ZZZ Ultrasonography of Abdomen (ICD-10-PCS; principal; 2020-04-03)
DX: K70.31 Alcoholic cirrhosis of liver with ascites (principal); F41.9 Anxiety disorder, unspecified; F31.9 Bipolar disorder, unspecified; F17.200 Nicotine dependence, unspecified, uncomplicated; Z79.899 Other long term (current) drug therapy
CPT/HCPCS: 49083; P9047

== ENCOUNTER 2020-04-13 07:46 | Day surgery (SDC) | payer BC ==
--- NOTE | 2020-04-13 09:18 | ULT ---
US Paracentesis with Imaging History: Ascites Comparison: Paracentesis April 03, 2020 Findings: Patient was brought to the ultrasound suite. All questions were answered. Informed consent obtained. Timeout performed. Patient's right lower quadrant which prepped and draped in normal sterile fashion. Using ultrasound g uidance after adequate local anesthetic with lidocaine, a total of 7150 mL of straw-colored fluid was removed. Patient tolerated the procedure well without complication. Impression: Technically successful paracentesis.
[2020-04-13 09:34] VITALS: TEMP 98.4
[2020-04-13 09:39] VITALS: BP 133/84
== END 2020-04-13 09:10 | disposition home or self-care (01) ==
LOC: ULT 07:46
PROVIDERS: ATTEND Internal Medicine Gastroenterology
PROC: 0W9G3ZZ Drainage of Peritoneal Cavity, Percutaneous Approach (ICD-10-PCS; principal; 2020-04-13)
DX: K70.31 Alcoholic cirrhosis of liver with ascites (principal); F31.9 Bipolar disorder, unspecified; F41.9 Anxiety disorder, unspecified; F17.200 Nicotine dependence, unspecified, uncomplicated; F10.11 Alcohol abuse, in remission; Z79.01 Long term (current) use of anticoagulants; Z79.899 Other long term (current) drug therapy
CPT/HCPCS: 49083

== ENCOUNTER 2020-12-06 13:25 | Emergency (ER) | payer BC ==
[2020-12-06 14:39] LABS: #Basophils 0.1 thou/uL (0.0-0.2); #Eosinphils 0.1 thou/uL (0.0-0.7); #Monocytes 0.8 thou/uL (0.11-0.59); #Neutrophils 6.9 thou/uL (1.40-6.50); %Basophils 0.6 % (0.0-1.0); %Eosinophils 0.6 % (0.0-10.0); %Lymphocytes 11.4 % (21.0-51.0); %Monocytes 9.2 % (0.0-10.0); %Neutrophils 78.1 % (42.0-75.0); Hemoglobin 14.1 g/dL (14.0-18.0); Mean Corpuscular HGB CONC 33.1 g/dL (32.0-36.0); Mean Corpuscular Hemoglobin 27.5 pg (27.0-31.0); Mean Corpuscular Volume 83.2 fL (78.0-98.0); Mean Platelet Volume 6.9 fL (7.4-10.4); Platelet Count 324 thou/uL (130-400); RBC Distribution Width 15.9 % (11.5-14.5); Red Blood Cell (RBC) Count 5.13 mill/uL (4.70-6.10); White Blood Cell (WBC) Count 8.8 thou/uL (4.8-10.8)
[2020-12-06 14:59] LABS: ALT (SGPT) 32 U/L (8-55); AST (SGOT) 89 U/L (5-34); Albumin 2.7 g/dL (3.5-5.0); Alkaline Phosphatase 322 U/L (40-110); Anion Gap 14 mmol/L (10-20); BUN (Urea Nitrogen) 8 mg/dL (8.9-20.6); Bilirubin, Total 3.2 mg/dL (0.2-1.2); Calc. Creatinine Clearance 0 mL/min (70-130); Calcium 7.9 mg/dL (7.8-10.44); Carbon Dioxide 23 mmol/L (22-29); Chloride 104 mmol/L (98-107); Globulin 3.7 g/dL (2.4-3.5); Glucose 95 mg/dL (70-105); Lipase 21 U/L (8-78); Potassium 3.8 mmol/L (3.5-5.1); Protein, Total 6.4 g/dL (6.0-8.3); Sodium 137 mmol/L (136-145)
[2020-12-06] MEDS ORDERED: Lorazepam 2 MG/ML VIAL ONE (15:11)
[2020-12-06] MEDS ORDERED: Ondansetron PF 4 MG/2 ML Vial ONE (15:11)
[2020-12-06] MEDS ORDERED: Diazepam 10 MG/2 ML SYRINGE ONE ×2 (15:30→16:29)
[2020-12-06] MEDS ORDERED: Multivitamins, Adult 10 ML, Thiamine HCl 100 MG, Folic Acid 1 MG in Dextrose 5 %-0.45 %... IV SCH (15:30)
[2020-12-06 16:18] LABS: Bilirubin Moderate (Negative); Blood, Urine Negative (Negative); Glucose, Urine (Dipstick) 100 mg/dL (Negative); Ketone, Urine 40 mg/dL (Negative); Leukocyte Negative (Negative); Nitrite Positive (Negative); Protein, Urine (Dipstick) 100 mg/dL (Neg-Trace); Urobilinogen > or = 8.0 mg/dL (Less than 2)
[2020-12-06 16:27] LABS: Clarity Hazy (Clear); RBC/HPF None Seen HPF (0-3)
[2020-12-06 16:28] LABS: Bacteria/HPF 2+ HPF (None Seen); Mucous/LPF Rare LPF (<2+); Sperm/HPF Rare HPF (None Seen); Squamous Epithelial None Seen HPF (0-3); WBC/HPF 0-3 HPF (0-3)
== END 2020-12-06 18:17 | disposition home or self-care (01) ==
LOC: ERS 13:25
DX: F10.230 Alcohol dependence with withdrawal, uncomplicated (principal); F17.210 Nicotine dependence, cigarettes, uncomplicated; Z79.01 Long term (current) use of anticoagulants; Z79.899 Other long term (current) drug therapy
CPT/HCPCS: 36415; 71045; 80053; 81003; 81015; 82140; 83605; 83690; 84484; 85025; 93005; 94760; 96365; 96366; 96375; 96376; J2060; J2405; J3360; J3411; J7042

== ENCOUNTER 2021-02-20 15:17 | Inpatient (IN) | payer BC ==
[2021-02-20] MEDS ORDERED: Lorazepam 2 MG/ML VIAL ONE ×3 (15:37→18:33)
[2021-02-20] MEDS ORDERED: Multivitamins, Adult 10 ML, Thiamine HCl 100 MG, Folic Acid 1 MG in Dextrose 5 %-0.45 %... IV SCH (15:45)
[2021-02-20 16:01] LABS: #Eosinphils 0.1 thou/uL (0.0-0.7); #Monocytes 1.1 thou/uL (0.11-0.59); %Basophils 0.3 % (0.0-1.0); %Eosinophils 0.6 % (0.0-10.0); %Lymphocytes 11.1 % (21.0-51.0); %Monocytes 11.6 % (0.0-10.0); %Neutrophils 76.5 % (42.0-75.0); Hemoglobin 13.2 g/dL (14.0-18.0); Mean Corpuscular HGB CONC 33.3 g/dL (32.0-36.0); Mean Corpuscular Volume 81.1 fL (78.0-98.0); Mean Platelet Volume 8.6 fL (7.4-10.4); Platelet Count 198 thou/uL (130-400); RBC Distribution Width 16.2 % (11.5-14.5); Red Blood Cell (RBC) Count 4.89 mill/uL (4.70-6.10); White Blood Cell (WBC) Count 9.2 thou/uL (4.8-10.8)
[2021-02-20 16:22] LABS: ALT (SGPT) 34 U/L (8-55); AST (SGOT) 103 U/L (5-34); Albumin 3.1 g/dL (3.5-5.0); Alkaline Phosphatase 419 U/L (40-110); Anion Gap 17 mmol/L (10-20); BUN (Urea Nitrogen) 13 mg/dL (8.9-20.6); Bilirubin, Total 3.5 mg/dL (0.2-1.2); Calc. Creatinine Clearance 0 mL/min (70-130); Carbon Dioxide 25 mmol/L (22-29); Chloride 92 mmol/L (98-107); Globulin 3.6 g/dL (2.4-3.5); Glucose 101 mg/dL (70-105); Lipase 39 U/L (8-78); Magnesium 1.3 mg/dL (1.6-2.6); Potassium 3.6 mmol/L (3.5-5.1); Protein, Total 6.7 g/dL (6.0-8.3); Sodium 130 mmol/L (136-145)
[2021-02-20] MEDS ORDERED: Magnesium 2 GM/50 ML BAG (IN WATER) ONE (17:08)
[2021-02-20 17:34] LABS: SARS-CoV-2 NAA Rapid Test Not Detected (NotDetected)
[2021-02-20] MEDS ORDERED: Ondansetron ODT 4 MG TAB PO PRN ×2 (19:02)
[2021-02-20] MEDS ORDERED: Lorazepam 2 MG/ML VIAL IM PRN (19:02)
[2021-02-20] MEDS ORDERED: Acetaminophen 650 MG Suppository PR PRN (19:02)
[2021-02-20] MEDS ORDERED: Electrolyte Replacement Protocol 1 EACH FS SCH (19:15)
[2021-02-20] MEDS ORDERED: Lorazepam 2 MG/ML VIAL SLOW IVP PRN (19:56)
[2021-02-20 19:59] LABS: INR-International Normal Ratio 1.2; PTT 29.9 sec (22.9-36.1); Prothrombin Time 15.3 sec (12.0-14.7)
[2021-02-20 20:04] VITALS: BMI 22.0
[2021-02-20 20:18] LABS: Bilirubin, Total 2.8 mg/dL (0.2-1.2)
[2021-02-20 20:19] LABS: Alcohol Less than 10 mg/dL (Less than 10); Bilirubin, Direct 1.7 mg/dL (0.1-0.3)
[2021-02-20] MEDS: Thiamine HCl 200 MG/2 ML VIAL SLOW IVP SCH (20:42)
[2021-02-20] MEDS: Morphine 4 MG/ML VIAL SLOW IVP PRN (20:43)
[2021-02-20] MEDS: Lorazepam 1 MG TAB PO SCH (20:44)
[2021-02-20] MEDS: Famotidine/PF 20 mg/2ml Vial SLOW IVP SCH (20:44)
[2021-02-20] MEDS: Ondansetron PF 4 MG/2 ML Vial IVP PRN (20:44)
[2021-02-20] MEDS: Nicotine 14 MG PATCH TD SCH (20:53)
[2021-02-20] MEDS: Acetaminophen 325 MG TAB PO PRN (23:24)
[2021-02-20] MEDS: Lorazepam 1 MG TAB PO PRN (23:24)
[2021-02-21] MEDS: Famotidine 20 MG TAB PO SCH ×3 (00:17→20:21)
[2021-02-21] MEDS: Morphine 4 MG/ML VIAL SLOW IVP PRN ×3 (00:46→20:22)
[2021-02-21 01:03] LABS: Amphetamine Not Detected (NotDetected); Barbiturates Screen Not Detected (NotDetected); Benzodiazepine Screen Detected (NotDetected); Cocaine Metabolite Screen Not Detected (NotDetected); Methadone Not Detected (NotDetected); Methamphetamine Not Detected (NotDetected); Opiate Screen Detected (NotDetected); Oxycodone Screen Not Detected (NotDetected); Phencyclidine (PCP) Not Detected (NotDetected); THC/Cannabinoid Screen Detected (NotDetected); Tricyclic Screen Not Detected (NotDetected)
[2021-02-21] MEDS: Lorazepam 1 MG TAB PO SCH ×4 (02:25→20:22)
[2021-02-21] MEDS: Acetaminophen 325 MG TAB PO PRN (03:22)
[2021-02-21 03:45] LABS: #Eosinphils 0.2 thou/uL (0.0-0.7); #Lymphocytes 1.3 thou/uL (1.20-3.40); #Monocytes 1.1 thou/uL (0.11-0.59); #Neutrophils 6.1 thou/uL (1.40-6.50); %Basophils 0.5 % (0.0-1.0); %Eosinophils 1.8 % (0.0-10.0); %Lymphocytes 15.1 % (21.0-51.0); %Neutrophils 70.4 % (42.0-75.0); Hemoglobin 11.5 g/dL (14.0-18.0); Mean Corpuscular Volume 81.9 fL (78.0-98.0); Mean Platelet Volume 8.9 fL (7.4-10.4); Platelet Count 163 thou/uL (130-400); Red Blood Cell (RBC) Count 4.27 mill/uL (4.70-6.10); White Blood Cell (WBC) Count 8.7 thou/uL (4.8-10.8)
[2021-02-21 04:04] LABS: ALT (SGPT) 30 U/L (8-55); AST (SGOT) 86 U/L (5-34); Albumin 2.7 g/dL (3.5-5.0); Alkaline Phosphatase 338 U/L (40-110); Anion Gap 12 mmol/L (10-20); BUN (Urea Nitrogen) 10 mg/dL (8.9-20.6); Bilirubin, Total 2.8 mg/dL (0.2-1.2); Calc. Creatinine Clearance 107 mL/min (70-130); Calcium 7.7 mg/dL (7.8-10.44); Carbon Dioxide 27 mmol/L (22-29); Chloride 94 mmol/L (98-107); Globulin 3.1 g/dL (2.4-3.5); Glucose 87 mg/dL (70-105); Magnesium 1.9 mg/dL (1.6-2.6); Potassium 3.3 mmol/L (3.5-5.1); Protein, Total 5.8 g/dL (6.0-8.3); Sodium 130 mmol/L (136-145)
[2021-02-21] MEDS ORDERED: Magnesium 2 GM/50 ML 2 GM in Premix Bag 1 BAG IVPB SCH (05:15)
[2021-02-21] MEDS ORDERED: Potassium Chloride 20 MEQ TAB PO SCH (05:15)
[2021-02-21] MEDS: Ondansetron PF 4 MG/2 ML Vial IVP PRN (05:23)
[2021-02-21] MEDS: Lorazepam 1 MG TAB PO PRN ×3 (05:23→23:50)
[2021-02-21] MEDS: Multivit, Therapeutic 1 TAB PO SCH (08:17)
[2021-02-21] MEDS: Folic Acid 1 MG TAB PO SCH (08:17)
[2021-02-21] MEDS: Famotidine/PF 20 mg/2ml Vial SLOW IVP SCH (08:18)
[2021-02-21] MEDS ORDERED: FLU VACC QS2021-22(6MOS UP)/PF 60 MCG/0.5 ML SYRINGE IM ONE (09:00)
[2021-02-21] MEDS ORDERED: chlordiazePOXIDE HCl 25 MG CAP PO SCH (09:15)
[2021-02-21] MEDS ORDERED: Furosemide 20 MG/2 ML VIAL SLOW IVP SCH (09:30)
[2021-02-21] MEDS: Thiamine HCl 200 MG/2 ML VIAL SLOW IVP SCH (20:23)
[2021-02-21] MEDS: Nicotine 14 MG PATCH TD SCH (20:23)
[2021-02-21 21:11] LABS: Bacteria/HPF None Seen HPF (None Seen); Bilirubin 1+ (Negative); Blood, Urine Negative (Negative); Clarity Clear (Clear); Glucose, Urine (Dipstick) Normal (Negative); Ketone, Urine Trace mg/dL (Negative); Leukocyte Negative Leu/uL (Negative); Nitrite Negative (Negative); Protein, Urine (Dipstick) 20 mg/dL (Neg-Trace); RBC/HPF 0-3 HPF (0-3); Specific Gravity, Urine 1.029 (1.002-1.036); Squamous Epithelial 0-3 HPF (0-3); Urobilinogen Greater than 12 mg/dL (Less than 2); WBC/HPF 0-3 HPF (0-3)
[2021-02-21 21:12] LABS: Urine Culture Reflex No No
[2021-02-22] MEDS: Famotidine/PF 20 mg/2ml Vial SLOW IVP SCH ×3 (00:31→20:07)
[2021-02-22] MEDS: Morphine 4 MG/ML VIAL SLOW IVP PRN ×5 (00:40→20:06)
[2021-02-22] MEDS: Ondansetron PF 4 MG/2 ML Vial IVP PRN (02:30)
[2021-02-22] MEDS: Lorazepam 1 MG TAB PO SCH ×4 (02:31→20:05)
[2021-02-22 04:22] LABS: ALT (SGPT) 27 U/L (8-55); AST (SGOT) 66 U/L (5-34); Albumin 2.7 g/dL (3.5-5.0); Alkaline Phosphatase 297 U/L (40-110); Anion Gap 10 mmol/L (10-20); BUN (Urea Nitrogen) 10 mg/dL (8.9-20.6); Calc. Creatinine Clearance 131 mL/min (70-130); Calcium 7.7 mg/dL (7.8-10.44); Carbon Dioxide 28 mmol/L (22-29); Chloride 95 mmol/L (98-107); Globulin 2.9 g/dL (2.4-3.5); Glucose 88 mg/dL (70-105); Potassium 3.4 mmol/L (3.5-5.1); Protein, Total 5.6 g/dL (6.0-8.3); Sodium 130 mmol/L (136-145)
[2021-02-22] MEDS ORDERED: Potassium Chloride 20 MEQ TAB PO SCH (05:00)
[2021-02-22] MEDS: Multivit, Therapeutic 1 TAB PO SCH (08:29)
[2021-02-22] MEDS: Folic Acid 1 MG TAB PO SCH (08:29)
[2021-02-22] MEDS: Famotidine 20 MG TAB PO SCH (08:29)
[2021-02-22] MEDS: Sodium Chloride 0.9% 1,000 ML IV SCH (13:35)
[2021-02-22] MEDS ORDERED: Pantoprazole 40 MG VIAL IVP SCH (13:45)
[2021-02-22] MEDS: chlordiazePOXIDE HCl 25 MG CAP PO SCH ×2 (14:25→20:16)
[2021-02-22] MEDS: Lorazepam 1 MG TAB PO PRN (17:46)
[2021-02-22] MEDS: Ondansetron ODT 4 MG TAB PO SCH (18:09)
[2021-02-22] MEDS ORDERED: Lorazepam 1 MG TAB PO PRN (19:03)
[2021-02-22] MEDS ORDERED: Lorazepam 0.5 MG TAB PO SCH (20:00)
[2021-02-22] MEDS: Thiamine HCl 200 MG/2 ML VIAL SLOW IVP SCH (20:05)
[2021-02-22] MEDS: Nicotine 14 MG PATCH TD SCH (20:07)
[2021-02-23] MEDS: Ondansetron ODT 4 MG TAB PO SCH ×3 (00:12→11:48)
[2021-02-23] MEDS: Acetaminophen 325 MG TAB PO PRN (00:13)
[2021-02-23 07:44] LABS: ALT (SGPT) 26 U/L (8-55); AST (SGOT) 53 U/L (5-34); Albumin 2.5 g/dL (3.5-5.0); Alkaline Phosphatase 237 U/L (40-110); Anion Gap 11 mmol/L (10-20); BUN (Urea Nitrogen) 6 mg/dL (8.9-20.6); Bilirubin, Total 1.3 mg/dL (0.2-1.2); Calc. Creatinine Clearance 146 mL/min (70-130); Calcium 7.8 mg/dL (7.8-10.44); Carbon Dioxide 26 mmol/L (22-29); Chloride 101 mmol/L (98-107); Globulin 2.6 g/dL (2.4-3.5); Glucose 90 mg/dL (70-105); Potassium 3.7 mmol/L (3.5-5.1); Protein, Total 5.1 g/dL (6.0-8.3); Sodium 134 mmol/L (136-145)
[2021-02-23] MEDS: Sodium Chloride 0.9% 1,000 ML IV SCH (08:26)
[2021-02-23] MEDS: Folic Acid 1 MG TAB PO SCH (08:26)
[2021-02-23] MEDS: Famotidine/PF 20 mg/2ml Vial SLOW IVP SCH (08:26)
[2021-02-23] MEDS: Multivit, Therapeutic 1 TAB PO SCH (08:26)
[2021-02-23] MEDS ORDERED: Pantoprazole 40 MG VIAL IVP SCH (09:00)
[2021-02-23] MEDS: chlordiazePOXIDE HCl 25 MG CAP PO SCH ×2 (09:40→15:10)
[2021-02-23 13:24] VITALS: BP 97/62; TEMP 98.5
[2021-02-23] MEDS ORDERED: Lorazepam 0.5 MG TAB PO PRN (19:03)
[2021-02-23] MEDS ORDERED: Thiamine 100 MG TAB PO SCH (20:00)
== END 2021-02-23 15:55 | disposition home or self-care (01) | DRG 897 ==
LOC: ERS 15:17 → IMCU/EMU 18:20 → T4-B 02-22 23:18
PROVIDERS: ADMIT Family Medicine; ATTEND Internal Medicine
PROC: HZ2ZZZZ Detoxification Services for Substance Abuse Treatment (ICD-10-PCS; principal; 2021-02-20)
DX: F10.231 Alcohol dependence with withdrawal delirium (principal); R44.0 Auditory hallucinations; E87.1 Hypo-osmolality and hyponatremia; R18.8 Other ascites; F41.9 Anxiety disorder, unspecified; E87.6 Hypokalemia; K74.60 Unspecified cirrhosis of liver; F17.210 Nicotine dependence, cigarettes, uncomplicated; F31.9 Bipolar disorder, unspecified; R25.1 Tremor, unspecified; Z20.822 Contact with and (suspected) exposure to COVID-19; M81.0 Age-related osteoporosis without current pathological fracture; Z90.49 Acquired absence of other specified parts of digestive tract; Z71.41 Alcohol abuse counseling and surveillance of alcoholic; Z79.899 Other long term (current) drug therapy
CPT/HCPCS: 36415; 36416; 71045; 74177; 76705; 80053; 80306; 80307; 81001; 82247; 83690; 83735; 84100; 85025; 85610; 85730; 90471; 90686; 93005; 96365; 96366; 96368; 96375; 96376; C9113; G0008; J1940; J2060; J2270; J2405; J3411; J3475; J7042; J7050; Q0162; Q9967; S0028; U0002

== ENCOUNTER 2021-03-17 05:11 | Inpatient (IN) | payer BC ==
[2021-03-17] MEDS ORDERED: cefTRIAXone\\ROCEPHIN 2 GM VIAL ONE (05:20)
[2021-03-17] MEDS ORDERED: Ondansetron PF 4 MG/2 ML Vial ONE (05:20)
[2021-03-17] MEDS ORDERED: Pantoprazole 80 MG in Sodium Chloride 0.9% 100 ML IVPB SCH (05:30)
[2021-03-17] MEDS ORDERED: Pantoprazole 40 MG VIAL IVP SCH (05:30)
[2021-03-17] MEDS ORDERED: Lorazepam 2 MG/ML VIAL ONE ×2 (05:34→07:52)
[2021-03-17 05:36] LABS: #Lymphocytes 0.8 thou/uL (1.20-3.40); #Monocytes 0.8 thou/uL (0.11-0.59); #Neutrophils 6.7 thou/uL (1.40-6.50); %Basophils 0.1 % (0.0-1.0); %Eosinophils 0.2 % (0.0-10.0); %Lymphocytes 9.1 % (21.0-51.0); %Monocytes 9.3 % (0.0-10.0); %Neutrophils 81.4 % (42.0-75.0); Hemoglobin 12.9 g/dL (14.0-18.0); Mean Corpuscular HGB CONC 33.8 g/dL (32.0-36.0); Mean Corpuscular Hemoglobin 27.9 pg (27.0-31.0); Mean Corpuscular Volume 82.6 fL (78.0-98.0); Platelet Count 193 thou/uL (130-400); RBC Distribution Width 17.2 % (11.5-14.5); Red Blood Cell (RBC) Count 4.62 mill/uL (4.70-6.10); White Blood Cell (WBC) Count 8.3 thou/uL (4.8-10.8)
[2021-03-17 05:48] LABS: INR-International Normal Ratio 1.4
[2021-03-17 05:49] LABS: PTT 32.4 sec (22.9-36.1)
[2021-03-17 06:18] LABS: Calcium 8.3 mg/dL (7.8-10.44); Chloride 95 mmol/L (98-107); Potassium 4.5 mmol/L (3.5-5.1); Sodium 133 mmol/L (136-145)
[2021-03-17 06:19] LABS: Globulin 3.8 g/dL (2.4-3.5); Glucose 66 mg/dL (70-105); Protein, Total 6.8 g/dL (6.0-8.3)
[2021-03-17 06:21] LABS: Anion Gap 23 mmol/L (10-20); Bilirubin, Total 2.7 mg/dL (0.2-1.2); Carbon Dioxide 20 mmol/L (22-29)
[2021-03-17] MEDS ORDERED: Morphine 4 MG/ML VIAL ONE (06:21)
[2021-03-17 06:22] LABS: Alkaline Phosphatase 206 U/L (40-110); Calc. Creatinine Clearance 0 mL/min (70-130)
[2021-03-17 06:23] LABS: BUN (Urea Nitrogen) 11 mg/dL (8.9-20.6)
[2021-03-17 06:24] LABS: AST (SGOT) 224 U/L (5-34)
[2021-03-17 06:25] LABS: ALT (SGPT) 70 U/L (8-55)
[2021-03-17] MEDS ORDERED: Folic Acid 1 MG, Multivitamins, Adult 10 ML in Dextrose 5 %-0.45 % NaCl 1,000 ML IV SCH (06:30)
[2021-03-17] MEDS ORDERED: Thiamine HCl 200 MG/2 ML VIAL SLOW IVP SCH (06:30)
[2021-03-17] MEDS ORDERED: Octreotide Acetate 1,250 MCG in Sodium Chloride 0.9% 250 ML 250 ML IVPB SCH (06:45)
[2021-03-17] MEDS ORDERED: Multivitamins, Adult 10 ML, Thiamine HCl 100 MG, Folic Acid 1 MG in Dextrose 5 %-0.45 %... IV SCH (06:45)
[2021-03-17] MEDS ORDERED: Octreotide Acetate 50 MCG/ML AMP ONE (06:47)
[2021-03-17] MEDS ORDERED: Ondansetron ODT 4 MG TAB PO PRN (07:35)
[2021-03-17] MEDS ORDERED: Electrolyte Replacement Protocol 1 EACH FS SCH (07:45)
[2021-03-17 08:10] LABS: Hemoglobin 11.6 g/dL (14.0-18.0); Mean Corpuscular HGB CONC 33.4 g/dL (32.0-36.0); Mean Corpuscular Hemoglobin 27.7 pg (27.0-31.0); Mean Corpuscular Volume 82.7 fL (78.0-98.0); Platelet Count 147 thou/uL (130-400); Red Blood Cell (RBC) Count 4.21 mill/uL (4.70-6.10); White Blood Cell (WBC) Count 7.4 thou/uL (4.8-10.8)
[2021-03-17 08:34] LABS: Bilirubin, Direct 1.5 mg/dL (0.1-0.3); Magnesium 1.7 mg/dL (1.6-2.6)
[2021-03-17] MEDS: Lorazepam 1 MG TAB PO SCH ×3 (11:38→20:18)
[2021-03-17] MEDS: Multivitamins, Adult 10 ML, Folic Acid 1 MG, Thiamine HCl 100 MG in Dextrose 5 %-0.45 %... IV SCH (11:38)
[2021-03-17] MEDS ORDERED: Magnesium 2 GM/50 ML 2 GM in Premix Bag 1 BAG IVPB SCH (12:00)
[2021-03-17 12:09] VITALS: BMI 23.1
[2021-03-17] MEDS: Lorazepam 1 MG TAB PO PRN (12:20)
[2021-03-17 15:08] LABS: Amphetamine Not Detected (NotDetected); Barbiturates Screen Not Detected (NotDetected); Benzodiazepine Screen Detected (NotDetected); Cocaine Metabolite Screen Not Detected (NotDetected); Methadone Not Detected (NotDetected); Methamphetamine Not Detected (NotDetected); Opiate Screen Detected (NotDetected); Oxycodone Screen Not Detected (NotDetected); Phencyclidine (PCP) Not Detected (NotDetected); THC/Cannabinoid Screen Detected (NotDetected); Tricyclic Screen Not Detected (NotDetected)
[2021-03-17] MEDS: traMADol HCl 50 MG TAB PO PRN (17:21)
[2021-03-17] MEDS: Pantoprazole 80 MG in Sodium Chloride 0.9% 100 ML IVPB SCH (17:45)
[2021-03-17] MEDS: Furosemide 40 MG TAB PO SCH (20:17)
[2021-03-17] MEDS: Spironolactone 25 MG TAB PO SCH (20:17)
[2021-03-18] MEDS: Lorazepam 1 MG TAB PO SCH ×4 (01:42→20:53)
[2021-03-18 04:00] LABS: ALT (SGPT) 63 U/L (8-55); AST (SGOT) 182 U/L (5-34); Albumin 2.4 g/dL (3.5-5.0); Alkaline Phosphatase 157 U/L (40-110); Anion Gap 12 mmol/L (10-20); BUN (Urea Nitrogen) 7 mg/dL (8.9-20.6); Bilirubin, Total 2.7 mg/dL (0.2-1.2); Calc. Creatinine Clearance 127 mL/min (70-130); Calcium 7.6 mg/dL (7.8-10.44); Carbon Dioxide 25 mmol/L (22-29); Chloride 98 mmol/L (98-107); Globulin 2.9 g/dL (2.4-3.5); Glucose 100 mg/dL (70-105); Potassium 3.4 mmol/L (3.5-5.1); Protein, Total 5.3 g/dL (6.0-8.3); Sodium 132 mmol/L (136-145)
[2021-03-18] MEDS: traMADol HCl 50 MG TAB PO PRN ×2 (04:54→20:55)
[2021-03-18 04:56] LABS: SARS-CoV-2 NAA Rapid Test Not Detected (NotDetected)
[2021-03-18] MEDS: Pantoprazole 80 MG in Sodium Chloride 0.9% 100 ML IVPB SCH (05:03)
[2021-03-18] MEDS: cefTRIAXone\\ROCEPHIN 1 GM in Sodium Chloride 0.9% 100 ML IVPB SCH (05:20)
[2021-03-18] MEDS: Potassium Chloride 20 MEQ in Premix Bag 1 BAG IVPB SCH ×2 (06:07→09:26)
[2021-03-18] MEDS: Lorazepam 1 MG TAB PO PRN (06:11)
[2021-03-18 08:24] LABS: Hemoglobin 11.4 g/dL (14.0-18.0); Mean Corpuscular HGB CONC 32.3 g/dL (32.0-36.0); Mean Corpuscular Hemoglobin 27.5 pg (27.0-31.0); Mean Corpuscular Volume 85.1 fL (78.0-98.0); RBC Distribution Width 17.4 % (11.5-14.5); Red Blood Cell (RBC) Count 4.16 mill/uL (4.70-6.10); White Blood Cell (WBC) Count 3.2 thou/uL (4.8-10.8)
[2021-03-18 08:59] LABS: #Eosinphils 0.1 thou/uL (0.0-0.7); #Lymphocytes 0.8 thou/uL (1.20-3.40); #Monocytes 0.4 thou/uL (0.11-0.59); #Neutrophils 1.8 thou/uL (1.40-6.50); %Basophils 1.3 % (0.0-1.0); %Eosinophils 4.6 % (0.0-10.0); %Lymphocytes 24.8 % (21.0-51.0); %Neutrophils 57.2 % (42.0-75.0); Anisocytosis SLIGHT = 6-15 cells (100X) (0-5/hpf); MDiff Complete? YES; Mean Platelet Volume 8.7 fL (7.4-10.4); Platelet Count 103 thou/uL (130-400); Platelet Morphology Comment Appears Decreased; Polychromasia SLIGHT = 2-3 cells (100X) (0-2/hpf)
[2021-03-18] MEDS: Furosemide 40 MG TAB PO SCH ×2 (09:25→20:54)
[2021-03-18] MEDS: Spironolactone 25 MG TAB PO SCH ×3 (09:25→20:54)
[2021-03-18] MEDS: Escitalopram Oxalate 10 mg Tablet PO SCH (09:25)
[2021-03-18] MEDS: Multivitamins, Adult 10 ML, Folic Acid 1 MG, Thiamine HCl 100 MG in Dextrose 5 %-0.45 %... IV SCH (09:30)
[2021-03-18] MEDS ORDERED: Ondansetron HCl/PF 4 MG/2 ML Vial IVP PRN (12:39)
[2021-03-18] MEDS ORDERED: HYDROmorphone 2 MG/ML VIAL SLOW IVP PRN (12:39)
[2021-03-18] MEDS: Morphine 4 MG/ML VIAL SLOW IVP PRN ×2 (18:04→23:38)
[2021-03-18] MEDS: Pantoprazole 40 MG VIAL IVP SCH (21:29)
[2021-03-19] MEDS: Lorazepam 1 MG TAB PO SCH ×2 (02:30→08:16)
[2021-03-19] MEDS: cefTRIAXone\\ROCEPHIN 1 GM in Sodium Chloride 0.9% 100 ML IVPB SCH (06:39)
[2021-03-19] MEDS: Morphine 4 MG/ML VIAL SLOW IVP PRN ×2 (06:45→11:58)
[2021-03-19] MEDS: Multivitamins, Adult 10 ML, Folic Acid 1 MG, Thiamine HCl 100 MG in Dextrose 5 %-0.45 %... IV SCH (08:15)
[2021-03-19] MEDS: Spironolactone 25 MG TAB PO SCH (08:16)
[2021-03-19] MEDS: Furosemide 40 MG TAB PO SCH (08:16)
[2021-03-19] MEDS: Pantoprazole 40 MG VIAL IVP SCH (08:16)
[2021-03-19] MEDS: Escitalopram Oxalate 10 mg Tablet PO SCH (08:16)
[2021-03-19 13:24] VITALS: BP 107/74; TEMP 97.3
[2021-03-19] MEDS ORDERED: Lorazepam 0.5 MG TAB PO SCH (14:00)
== END 2021-03-19 13:26 | disposition home or self-care (01) | DRG 896 ==
LOC: ERS 05:11 → ERHOLD 06:55 → IMCU/EMU 11:30 → T4-A 03-18 15:08
PROVIDERS: ADMIT Internal Medicine; ATTEND Internal Medicine
PROC: HZ2ZZZZ Detoxification Services for Substance Abuse Treatment (ICD-10-PCS; principal; 2021-03-17)
PROC: 0DJ08ZZ Inspection of Upper Intestinal Tract, Via Natural or Artificial Opening Endoscopic (ICD-10-PCS; 2021-03-18)
DX: F10.231 Alcohol dependence with withdrawal delirium (principal); K20.91 Esophagitis, unspecified with bleeding; K76.6 Portal hypertension; E46 Unspecified protein-calorie malnutrition; Z20.822 Contact with and (suspected) exposure to COVID-19; K31.89 Other diseases of stomach and duodenum; K70.31 Alcoholic cirrhosis of liver with ascites; F31.9 Bipolar disorder, unspecified; K76.0 Fatty (change of) liver, not elsewhere classified; F10.20 Alcohol dependence, uncomplicated; F17.210 Nicotine dependence, cigarettes, uncomplicated; R74.01 Elevation of levels of liver transaminase levels; M81.0 Age-related osteoporosis without current pathological fracture; F41.9 Anxiety disorder, unspecified; Z68.22 Body mass index [BMI] 22.0-22.9, adult; Z90.49 Acquired absence of other specified parts of digestive tract; Z79.899 Other long term (current) drug therapy; Z81.1 Family history of alcohol abuse and dependence; Z71.41 Alcohol abuse counseling and surveillance of alcoholic; Z71.6 Tobacco abuse counseling
CPT/HCPCS: 36415; 80053; 80306; 82248; 83735; 85025; 85610; 85730; 86850; 86900; 86901; 93005; C9113; J0696; J2060; J2270; J2354; J2405; J3411; J3475; J3480; J3490; J7042; J7050; Q0162; U0002; U0003; U0005

== ENCOUNTER 2021-06-10 09:31 | Emergency (ER) | payer BC, OTHER ==
[2021-06-10] MEDS ORDERED: Morphine 4 MG/ML VIAL ONE (10:16)
[2021-06-10] MEDS ORDERED: Ondansetron PF 4 MG/2 ML Vial ONE (10:16)
[2021-06-10 10:39] LABS: Hemoglobin 11.1 g/dL (14.0-18.0); Mean Corpuscular HGB CONC 31.5 g/dL (32.0-36.0); Mean Corpuscular Hemoglobin 27.9 pg (27.0-31.0); Mean Corpuscular Volume 88.5 fL (78.0-98.0); Mean Platelet Volume 7.7 fL (7.4-10.4); Platelet Count 223 thou/uL (130-400); RBC Distribution Width 16.1 % (11.5-14.5); Red Blood Cell (RBC) Count 3.96 mill/uL (4.70-6.10); White Blood Cell (WBC) Count 7.1 thou/uL (4.8-10.8)
[2021-06-10 10:55] LABS: ALT (SGPT) 19 U/L (8-55); AST (SGOT) 50 U/L (5-34); Albumin 2.7 g/dL (3.5-5.0); Alkaline Phosphatase 151 U/L (40-110); Anion Gap 10 mmol/L (10-20); BUN (Urea Nitrogen) 6 mg/dL (8.9-20.6); Bilirubin, Total 0.8 mg/dL (0.2-1.2); Calc. Creatinine Clearance 0 mL/min (70-130); Calcium 8.1 mg/dL (7.8-10.44); Carbon Dioxide 23 mmol/L (22-29); Chloride 110 mmol/L (98-107); Globulin 2.7 g/dL (2.4-3.5); Glucose 88 mg/dL (70-105); Potassium 3.8 mmol/L (3.5-5.1); Protein, Total 5.4 g/dL (6.0-8.3); Sodium 139 mmol/L (136-145)
[2021-06-10 11:04] LABS: Band 3 % (5-11); Eosinophils 3 % (0-10); Lymphocytes 22 % (21-51); MDiff Complete? YES; Monocytes 10 % (0-10); Neutrophil 60 % (42-75); RBC Morphology Normal; Reactive Lymphocytes 1 % (0-10)
== END 2021-06-10 12:15 | disposition home or self-care (01) ==
LOC: ERS 09:31
DX: K74.60 Unspecified cirrhosis of liver (principal); F17.210 Nicotine dependence, cigarettes, uncomplicated; Z85.528 Personal history of other malignant neoplasm of kidney
CPT/HCPCS: 36415; 80053; 85025; 96374; 96375; J2270; J2405